=== PATIENT | male | born 1945 | race Caucasian/White ===

== ENCOUNTER 2017-08-18 13:35 | Inpatient (IN) | payer MEDICARE, OTHER ==
[2017-08-18 14:45] LABS: ADD MAN DIFF? NO
[2017-08-18 14:52] LABS: BASOPHILS % 0.2 % (0.0-2.0); EOSINOPHILS # 0.1 10^3/ul (0.0-0.5); EOSINOPHILS % 0.6 % (0.0-7.0); HEMATOCRIT 27.5 % (42.0-52.0); HEMOGLOBIN 8.4 g/dl (14.0-18.0); LYMPHOCYTES # 0.7 10^3/ul (0.8-2.9); LYMPHOCYTES % 3.1 % (15.0-51.0); MEAN CORPUSCULAR HEMOGLOBIN 28.8 pg (29.0-33.0); MEAN CORPUSCULAR HGB CONC 30.5 g/dl (32.0-37.0); MEAN CORPUSCULAR VOLUME 94.2 fl (82.0-101.0); MEAN PLATELET VOLUME 9.8 fl (7.4-10.4); MONOCYTE # 1.1 10^3/ul (0.3-0.9); MONOCYTES % 5.1 % (0.0-11.0); NEUTROPHIL # 18.9 10^3/ul (1.6-7.5); NEUTROPHILS % 87.7 % (39.0-77.0); NUCLEATED RED BLOOD CELLS% 0.1 /100WBC (0.0-0.0); PLATELET COUNT 330 10^3/UL (140-415); POSITIVE DIFF @See below; RED BLOOD COUNT 2.92 10^6/ul (4.70-6.10); RED CELL DISTRIBUTION WIDTH 16.9 % (11.5-14.5)
[2017-08-18 14:52] LABS: WHITE BLOOD COUNT 21.6 10^3/ul (4.8-10.8)
[2017-08-18] MEDS ORDERED: CEFEPIME 1GM/50 ML (PMX) 50 ML IVPB (15:00)
[2017-08-18] MEDS ORDERED: NA PHOSPHATE/BIPHOS 133 ML ENEMA PR (15:00)
[2017-08-18] MEDS ORDERED: BISACODYL 10 MG SUPP PR (15:00)
[2017-08-18] MEDS ORDERED: MAGNESIUM HYDROXIDE 30ML CUP PO (15:00)
[2017-08-18 15:08] LABS: ALANINE AMINOTRANSFERASE 23 IU/L (13-69); ALBUMIN 2.7 g/dl (3.3-4.9); ALKALINE PHOSPHATASE 121 IU/L (42-121); ANION GAP 21 (8-16); ASPARTATE AMINO TRANSFERASE 57 IU/L (15-46); BILIRUBIN,INDIRECT 0.1 mg/dl (0-1.1); BILIRUBIN,TOTAL 0.1 mg/dl (0.2-1.3); BLOOD UREA NITROGEN 74 mg/dl (7-20); CALCIUM 8.5 mg/dl (8.4-10.2); CARBON DIOXIDE 21 mmol/L (21-31); CHLORIDE 101 mmol/L (97-110); CREATININE 5.09 mg/dl (0.61-1.24); GLUCOSE 209 mg/dl (70-220); POTASSIUM 3.9 mmol/L (3.5-5.1); SODIUM 139 mmol/L (135-144); TOTAL PROTEIN 5.4 g/dl (6.1-8.1)
[2017-08-18] MEDS ORDERED: GLUCAGON 1 MG INJ IM (15:30)
[2017-08-18] MEDS ORDERED: GLUCOSE GEL 15 GRAM TUBE BUCCAL (15:30)
[2017-08-18] MEDS ORDERED: GLUCOSE GEL 15 GRAM TUBE PO ×2 (15:30)
[2017-08-18] MEDS ORDERED: PENDING SANTYL ORDER FOR WOUND CARE XX (15:30)
[2017-08-18] MEDS ORDERED: DEXTROSE 50% 50 ML SYRINGE IV ×2 (15:30)
[2017-08-18] MEDS: LACTATED RINGER'S 1,000 ML IV (15:51)
[2017-08-18] MEDS: oxyCODONE 5 MG TAB PO (16:06)
[2017-08-18] MEDS ORDERED: INSULIN ASPART [NOVOLOG] 3 ML PEN SC (17:35)
[2017-08-18] MEDS: INSULIN ASPART [NOVOLOG] 3 ML PEN SC ×2 (18:27→21:52)
[2017-08-18] MEDS ORDERED: VANCOMYCIN IV PER PHARMACY XX (20:00)
[2017-08-18] MEDS ORDERED: TOBRAMYCIN IV PER PHARMACY XX (21:00)
[2017-08-18] MEDS ORDERED: FAMOTIDINE 20 MG TAB PO (21:00)
[2017-08-18] MEDS: NORepinephrine 8MG/250 ML (PMX 250 ML IV (21:13)
[2017-08-18] MEDS: OLANZAPINE 5 MG TAB PO (21:35)
[2017-08-18] MEDS: PSYLLIUM 28% PACKET PO (21:35)
[2017-08-18] MEDS: DOCUSATE SODIUM 10 MG/ML (10ML CUP) GTB (21:36)
[2017-08-18] MEDS: PIPER-TAZO 2.25 GM (PMX) 50 ML IVPB (21:36)
[2017-08-18] MEDS: SEVELAMER CARBONATE 0.8 GM PKT GTB (21:36)
[2017-08-18] MEDS: ATORVASTATIN 10 MG TAB PO (21:37)
[2017-08-18] MEDS: APIXABAN 5 MG TABLET PO (21:37)
[2017-08-18] MEDS: FAMOTIDINE 20 MG TAB PO (21:37)
[2017-08-18 21:41] LABS: LACTIC ACID 1.1 mmol/L (0.5-2.0)
[2017-08-18] MEDS: VANCOMYCIN 2 GM in SOD CHLORIDE 0.9% 500 ML IVPB (21:57)
[2017-08-18] MEDS: BALSAM PERU/CASTOR OIL 60 GM TUBE TOP (23:53)
[2017-08-18] MEDS: SOD CHLORIDE 0.9% IVPB (23:54)
[2017-08-18] MEDS: TOBRAMYCIN IVPB (23:54)
[2017-08-19 00:06] LABS: ANION GAP 15 (8-16); BLOOD UREA NITROGEN 83 mg/dl (7-20); CALCIUM 8.5 mg/dl (8.4-10.2); CARBON DIOXIDE 24 mmol/L (21-31); CHLORIDE 101 mmol/L (97-110); CREATININE 5.27 mg/dl (0.61-1.24); GLUCOSE 183 mg/dl (70-220); MAGNESIUM 2.8 mg/dl (1.7-2.5); PHOSPHORUS 6.8 mg/dl (2.5-4.9); POTASSIUM 3.4 mmol/L (3.5-5.1); SODIUM 137 mmol/L (135-144)
[2017-08-19] MEDS: DOPamine-D5W 1.6 MG/ML 250 ML IV ×2 (00:30→22:06)
[2017-08-19] MEDS: LACTATED RINGER'S 1,000 ML IV ×3 (00:30→18:00)
[2017-08-19] MEDS: oxyCODONE 5 MG TAB PO ×4 (01:23→21:20)
[2017-08-19] MEDS: INSULIN ASPART [NOVOLOG] 3 ML PEN SC ×6 (01:31→21:00)
[2017-08-19] MEDS: LORAZEPAM 1 MG TAB PO ×3 (02:10→21:43)
[2017-08-19 05:06] LABS: Allen Test ACCEPTAB; Arterial Base Excess -1.5 mmol/L (-3.0-3); Arterial Blood Gas Oxygen Sat 98.2 mmHG (95.0-100.0); Arterial Fraction of Oxyhgb 97.1 % (93.0-99.0); Arterial HCO3 22.6 mmol/L (22.0-26.0); Arterial MetHb 0.1 % (0.0-1.5); Arterial Total Hemglobin 7.8 g/dl (12.0-18.0); Arterial pCO2 35.3 mmhg (35-45); MODE VENT - AC; Site Left Radial
[2017-08-19] MEDS: PIPER-TAZO 2.25 GM (PMX) 50 ML IVPB ×2 (05:22→13:29)
[2017-08-19 05:37] LABS: WHITE BLOOD COUNT 16.9 10^3/ul (4.8-10.8)
[2017-08-19 05:37] LABS: ABNORMAL IP MESSAGE 1; HEMATOCRIT 23.5 % (42.0-52.0); HEMOGLOBIN 7.2 g/dl (14.0-18.0); MEAN CORPUSCULAR HGB CONC 30.6 g/dl (32.0-37.0); MEAN CORPUSCULAR VOLUME 94.8 fl (82.0-101.0); MEAN PLATELET VOLUME 9.9 fl (7.4-10.4); NUCLEATED RED BLOOD CELLS% 0.2 /100WBC (0.0-0.0); PLATELET COUNT 277 10^3/UL (140-415); POSITIVE DIFF @See below; RED BLOOD COUNT 2.48 10^6/ul (4.70-6.10); RED CELL DISTRIBUTION WIDTH 16.8 % (11.5-14.5)
[2017-08-19 05:44] LABS: ADD MAN DIFF? YES
[2017-08-19 06:12] LABS: CREATINE KINASE 277 IU/L (23-200)
[2017-08-19 06:22] LABS: LACTIC ACID 2.9 mmol/L (0.5-2.0)
[2017-08-19 06:24] LABS: CK INDEX 3.1
[2017-08-19 06:35] LABS: CK-MB 8.45 ng/ml (0.0-2.4)
[2017-08-19 06:36] LABS: TROPONIN-I 0.127 ng/ml (0.000-0.120)
[2017-08-19 07:30] LABS: FREE T4 (FREE THYROXINE) 1.01 ng/dl (0.78-2.44)
[2017-08-19] MEDS: DOCUSATE SODIUM 10 MG/ML (10ML CUP) GTB ×2 (08:21→20:45)
[2017-08-19] MEDS: ASCORBIC ACID 500 MG TAB GTB (08:21)
[2017-08-19] MEDS: VITAMIN B COMPLEX/VIT C CAP PO (08:21)
[2017-08-19] MEDS: APIXABAN 5 MG TABLET PO (08:21)
[2017-08-19] MEDS: MULTIVIT/CA CARB/B CMPLX/FA TAB GTB (08:21)
[2017-08-19] MEDS: OLANZAPINE 5 MG TAB PO (08:21)
[2017-08-19] MEDS: FOLIC ACID 1 MG TAB GTB (08:21)
[2017-08-19] MEDS: CHOLECALCIFEROL 1,000 UNIT TAB GTB (08:22)
[2017-08-19] MEDS: SEVELAMER CARBONATE 0.8 GM PKT GTB ×3 (08:22→20:45)
[2017-08-19] MEDS: PSYLLIUM 28% PACKET PO ×2 (08:22→20:45)
[2017-08-19 08:24] LABS: ALANINE AMINOTRANSFERASE 32 IU/L (13-69); ALKALINE PHOSPHATASE 105 IU/L (42-121); ANION GAP 17 (8-16); ASPARTATE AMINO TRANSFERASE 52 IU/L (15-46); BLOOD UREA NITROGEN 80 mg/dl (7-20); CARBON DIOXIDE 21 mmol/L (21-31); CHLORIDE 102 mmol/L (97-110); CHOLESTEROL < 50 mg/dl (100-200); CREATININE 4.48 mg/dl (0.61-1.24); GLUCOSE 203 mg/dl (70-220); HDL CHOLESTEROL 11 mg/dl (31-75); MAGNESIUM 2.5 mg/dl (1.7-2.5); POTASSIUM 3.8 mmol/L (3.5-5.1); SODIUM 136 mmol/L (135-144); TRIGLYCERIDES 150 mg/dl (0-149)
[2017-08-19 08:25] LABS: B-TYPE NATRIURETIC PEPTIDE 114000 PG/ML (0-125)
[2017-08-19] MEDS: BALSAM PERU/CASTOR OIL 60 GM TUBE TOP (08:45)
[2017-08-19] MEDS: CYANOCOBALAMIN 500 MCG TAB GTB (08:45)
[2017-08-19] MEDS ORDERED: TOBRAMYCIN 100 MG in SOD CHLORIDE 0.9% 100 ML IVPB (09:00)
[2017-08-19] MEDS: SOD CHLORIDE 0.9% 250 ML IV* (09:06)
[2017-08-19 09:55] LABS: ANISOCYTOSIS 1+ (0-0); BAND NEUTROPHILS % (M) 12 % (0-4); BASOPHIL #M 0.1 10^3/ul (0.0-0.0); BASOPHILS % (M) 1 % (0-2); EOSINOPHILS % (M) 1 % (0-7); ERYTHROBLAST% (NRBC) (M) 1 % (0-0); GIANT THROMBO% (M) 5 % (0-0); LYMPHOCYTES #M 0.5 10^3/ul (0.8-2.9); LYMPHOCYTES % (M) 3 % (15-51); MICROCYTOSIS 1+ (0-0); MONOCYTE #M 0.3 10^3/ul (0.3-0.9); MONOCYTES % (M) 2 % (0-11); MYELOCYTES #M 0.1 10^3/ul (0.0-0.0); MYELOCYTES % (M) 1 % (0-0); PLATELET ESTIMATE NORMAL; POIKILOCYTOSIS 3+ (0-0); POLYCHROMASIA 2+ (0-0); SEG NEUT #M 13.9 10^3/ul (1.6-7.5); SEGMENTED NEUTROPHILS (M) % 80 % (39-77); SMUDGE%M 3 % (0-0)
[2017-08-19] MEDS: EPOETIN 10000 UNITS/1 ML INJ (ESRD) SC (11:00)
[2017-08-19] MEDS ORDERED: CEFEPIME 1GM/50 ML (PMX) 50 ML IVPB (12:00)
[2017-08-19 12:14] LABS: AADO2 Arterial 585.8 mmHg (7.0-24.0); Allen Test ACCEPTAB; Arterial Base Excess -7.9 mmol/L (-3.0-3); Arterial Blood Gas Oxygen Sat 92.9 mmHG (95.0-100.0); Arterial COHb 0.3 % (0.0-3.0); Arterial Fraction of Oxyhgb 92.5 % (93.0-99.0); Arterial HCO3 19.7 mmol/L (22.0-26.0); Arterial MetHb 0.1 % (0.0-1.5); Arterial Total Hemglobin 11.4 g/dl (12.0-18.0); Arterial pCO2 48.7 mmhg (35-45); MODE VENT - AC; Site Right Radial
[2017-08-19] MEDS ORDERED: PROPOFOL 100 ML (13:51)
[2017-08-19] MEDS: SOD CHLORIDE 0.9% 100 ML (13:55)
[2017-08-19] MEDS: IOHEXOL 100 ML (13:55)
[2017-08-19] MEDS: PROPOFOL 100 ML IV (15:05)
[2017-08-19] MEDS: CASPOFUNGIN 70 MG in SOD CHLORIDE 0.9% 250 ML IVPB (16:09)
[2017-08-19] MEDS: [UNRECOGNIZED DRUG - REMARK] XX (17:00)
[2017-08-19] MEDS: ATORVASTATIN 10 MG TAB PO (20:45)
[2017-08-19] MEDS: FAMOTIDINE 20 MG TAB PO (20:45)
[2017-08-19 21:09] LABS: IMMEDIATE SPIN CROSSMATCH 1 3
[2017-08-19] MEDS: NORepinephrine 8MG/250 ML (PMX 250 ML IV (21:45)
[2017-08-19] MEDS ORDERED: NORepinephrine 8MG/250 ML (PMX 250 ML (21:55)
[2017-08-20] MEDS: INSULIN ASPART [NOVOLOG] 3 ML PEN SC ×6 (01:16→21:10)
[2017-08-20] MEDS: OLANZAPINE 5 MG TAB PO ×3 (01:19→21:08)
[2017-08-20] MEDS: PIPER-TAZO 2.25 GM (PMX) 50 ML IVPB ×4 (01:19→21:30)
[2017-08-20] MEDS: APIXABAN 5 MG TABLET PO ×3 (01:19→21:08)
[2017-08-20] MEDS: PROPOFOL 100 ML IV ×3 (01:43→19:04)
[2017-08-20] MEDS: LACTATED RINGER'S 1,000 ML IV ×2 (03:58→16:35)
[2017-08-20] MEDS: DOPamine-D5W 1.6 MG/ML 250 ML IV ×3 (04:02→19:48)
[2017-08-20] MEDS: BALSAM PERU/CASTOR OIL 60 GM TUBE TOP ×3 (04:03→21:08)
[2017-08-20 05:08] LABS: ADD MAN DIFF? NO
[2017-08-20 05:11] LABS: BASOPHIL # 0.1 10^3/ul (0.0-0.1); BASOPHILS % 0.6 % (0.0-2.0); EOSINOPHILS # 0.6 10^3/ul (0.0-0.5); EOSINOPHILS % 4.4 % (0.0-7.0); HEMATOCRIT 26.6 % (42.0-52.0); HEMOGLOBIN 8.4 g/dl (14.0-18.0); LYMPHOCYTES # 0.6 10^3/ul (0.8-2.9); LYMPHOCYTES % 4.8 % (15.0-51.0); MEAN CORPUSCULAR HEMOGLOBIN 29.5 pg (29.0-33.0); MEAN CORPUSCULAR HGB CONC 31.6 g/dl (32.0-37.0); MEAN CORPUSCULAR VOLUME 93.3 fl (82.0-101.0); MEAN PLATELET VOLUME 9.9 fl (7.4-10.4); MONOCYTE # 0.8 10^3/ul (0.3-0.9); NEUTROPHIL # 10.4 10^3/ul (1.6-7.5); NEUTROPHILS % 79.4 % (39.0-77.0); NUCLEATED RED BLOOD CELLS% 0.3 /100WBC (0.0-0.0); PLATELET COUNT 257 10^3/UL (140-415); RED BLOOD COUNT 2.85 10^6/ul (4.70-6.10); RED CELL DISTRIBUTION WIDTH 16.4 % (11.5-14.5)
[2017-08-20 05:25] LABS: AADO2 Arterial 564.2 mmHg (7.0-24.0); Allen Test ACCEPTAB; Arterial Base Excess -2.2 mmol/L (-3.0-3); Arterial Blood Gas Oxygen Sat 97.4 mmHG (95.0-100.0); Arterial COHb 0 % (0.0-3.0); Arterial Fraction of Oxyhgb 97.2 % (93.0-99.0); Arterial HCO3 23.6 mmol/L (22.0-26.0); Arterial MetHb 0.2 % (0.0-1.5); Arterial Total Hemglobin 12.6 g/dl (12.0-18.0); Arterial pCO2 44.4 mmhg (35-45); MODE VENT - AC; Site Left Radial
[2017-08-20 05:30] LABS: LACTIC ACID 0.9 mmol/L (0.5-2.0)
[2017-08-20 05:32] LABS: ANION GAP 14 (8-16); BLOOD UREA NITROGEN 52 mg/dl (7-20); CALCIUM 7.8 mg/dl (8.4-10.2); CARBON DIOXIDE 27 mmol/L (21-31); CHLORIDE 95 mmol/L (97-110); CREATININE 3.04 mg/dl (0.61-1.24); GLUCOSE 279 mg/dl (70-220); MAGNESIUM 2.2 mg/dl (1.7-2.5); PHOSPHORUS 4.3 mg/dl (2.5-4.9); POTASSIUM 3.6 mmol/L (3.5-5.1); SODIUM 132 mmol/L (135-144)
[2017-08-20 05:36] LABS: VANCOMYCIN,RANDOM 12.9 ug/ml
[2017-08-20 06:15] LABS: IRON 28 ug/dl (35-150)
[2017-08-20 06:24] LABS: % IRON SATURATION 16 % SAT (22-52); TOTAL IRON BINDING CAPACITY 172 ug/dl (241-421)
[2017-08-20] MEDS: CHOLECALCIFEROL 1,000 UNIT TAB GTB (09:00)
[2017-08-20] MEDS: CYANOCOBALAMIN 500 MCG TAB GTB (09:00)
[2017-08-20] MEDS: MULTIVIT/CA CARB/B CMPLX/FA TAB GTB (09:00)
[2017-08-20] MEDS: VITAMIN B COMPLEX/VIT C CAP PO (09:00)
[2017-08-20] MEDS: DOCUSATE SODIUM 10 MG/ML (10ML CUP) GTB ×2 (09:00→21:07)
[2017-08-20] MEDS: FOLIC ACID 1 MG TAB GTB (09:00)
[2017-08-20] MEDS: SEVELAMER CARBONATE 0.8 GM PKT GTB ×3 (09:00→21:07)
[2017-08-20] MEDS: PSYLLIUM 28% PACKET PO ×2 (09:01→21:07)
[2017-08-20] MEDS: ASCORBIC ACID 500 MG TAB GTB (09:01)
[2017-08-20] MEDS: LIDOCAINE 1% (MPF) 5 ML VIAL SC (13:22)
[2017-08-20] MEDS: CASPOFUNGIN 50 MG in SOD CHLORIDE 0.9% 250 ML IVPB (16:18)
[2017-08-20] MEDS: VANCOMYCIN 1.5 GM in SOD CHLORIDE 0.9% 250 ML IVPB (16:19)
[2017-08-20] MEDS: LORAZEPAM 1 MG TAB PO (20:26)
[2017-08-20] MEDS ORDERED: METOCLOPRAMIDE 10 MG INJ IV (21:00)
[2017-08-20] MEDS: FAMOTIDINE 20 MG TAB PO (21:07)
[2017-08-20] MEDS: ATORVASTATIN 10 MG TAB PO (21:07)
[2017-08-20] MEDS ORDERED: METOCLOPRAMIDE 10 MG INJ (21:18)
[2017-08-20] MEDS: METOCLOPRAMIDE 10 MG INJ IV ×2 (21:21→21:27)
[2017-08-20] MEDS: ACETAMINOPHEN 650MG/20.3ML CUP GTB (23:42)
[2017-08-21] MEDS ORDERED: METOCLOPRAMIDE 10 MG INJ IV
[2017-08-21] MEDS: PROPOFOL 100 ML IV ×4 (00:05→18:10)
[2017-08-21] MEDS: INSULIN ASPART [NOVOLOG] 3 ML PEN SC ×6 (01:13→21:33)
[2017-08-21 05:10] LABS: ADD MAN DIFF? NO
[2017-08-21 05:19] LABS: WHITE BLOOD COUNT 16.6 10^3/ul (4.8-10.8)
[2017-08-21 05:19] LABS: BASOPHIL # 0.1 10^3/ul (0.0-0.1); BASOPHILS % 0.4 % (0.0-2.0); EOSINOPHILS # 0.5 10^3/ul (0.0-0.5); EOSINOPHILS % 3.1 % (0.0-7.0); HEMATOCRIT 23.7 % (42.0-52.0); HEMOGLOBIN 7.4 g/dl (14.0-18.0); LYMPHOCYTES # 0.7 10^3/ul (0.8-2.9); LYMPHOCYTES % 4.4 % (15.0-51.0); MEAN CORPUSCULAR HGB CONC 31.2 g/dl (32.0-37.0); MEAN CORPUSCULAR VOLUME 92.9 fl (82.0-101.0); MEAN PLATELET VOLUME 9.9 fl (7.4-10.4); NEUTROPHIL # 13.5 10^3/ul (1.6-7.5); NEUTROPHILS % 81.3 % (39.0-77.0); NUCLEATED RED BLOOD CELLS% 0.2 /100WBC (0.0-0.0); PLATELET COUNT 267 10^3/UL (140-415); POSITIVE DIFF @See below; RED BLOOD COUNT 2.55 10^6/ul (4.70-6.10); RED CELL DISTRIBUTION WIDTH 16.7 % (11.5-14.5)
[2017-08-21] MEDS: METOCLOPRAMIDE 10 MG INJ IV ×3 (05:21→17:01)
[2017-08-21] MEDS: PIPER-TAZO 2.25 GM (PMX) 50 ML IVPB ×3 (05:31→21:39)
[2017-08-21 05:59] LABS: ANION GAP 16 (8-16); BLOOD UREA NITROGEN 66 mg/dl (7-20); CALCIUM 7.9 mg/dl (8.4-10.2); CARBON DIOXIDE 25 mmol/L (21-31); CHLORIDE 96 mmol/L (97-110); GLUCOSE 163 mg/dl (70-220); MAGNESIUM 2.3 mg/dl (1.7-2.5); PHOSPHORUS 5.2 mg/dl (2.5-4.9); POTASSIUM 3.6 mmol/L (3.5-5.1); SODIUM 133 mmol/L (135-144)
[2017-08-21] MEDS: DOPamine-D5W 1.6 MG/ML 250 ML IV (06:46)
[2017-08-21 07:03] LABS: HEMOGLOBIN 7.7 g/dl (14.0-18.0)
[2017-08-21 07:28] LABS: AADO2 Arterial 402.9 mmHg (7.0-24.0); Arterial Base Excess -2.1 mmol/L (-3.0-3); Arterial Blood Gas Oxygen Sat 97.8 mmHG (95.0-100.0); Arterial COHb 0.1 % (0.0-3.0); Arterial Fraction of Oxyhgb 97.2 % (93.0-99.0); Arterial HCO3 23.8 mmol/L (22.0-26.0); Arterial MetHb 0.5 % (0.0-1.5); Arterial Total Hemglobin 8.3 g/dl (12.0-18.0); Arterial pCO2 46.1 mmhg (35-45); MODE VENT - AC; Site Right Brachial
[2017-08-21 08:31] LABS: IRON 28 ug/dl (35-150)
[2017-08-21 08:40] LABS: % IRON SATURATION 18 % SAT (22-52); TOTAL IRON BINDING CAPACITY 158 ug/dl (241-421)
[2017-08-21] MEDS: SEVELAMER CARBONATE 0.8 GM PKT GTB ×3 (09:00→21:26)
[2017-08-21] MEDS: VITAMIN B COMPLEX/VIT C CAP PO (09:00)
[2017-08-21] MEDS: ASCORBIC ACID 500 MG TAB GTB (09:00)
[2017-08-21] MEDS: MULTIVIT/CA CARB/B CMPLX/FA TAB GTB (09:00)
[2017-08-21] MEDS: FOLIC ACID 1 MG TAB GTB (09:00)
[2017-08-21] MEDS: CYANOCOBALAMIN 500 MCG TAB GTB (09:00)
[2017-08-21] MEDS: CHOLECALCIFEROL 1,000 UNIT TAB GTB (09:00)
[2017-08-21] MEDS: HEPARIN 1000 UNITS/ML 10 ML INJ CATHETER (12:40)
[2017-08-21] MEDS: PSYLLIUM 28% PACKET PO ×2 (12:41→21:26)
[2017-08-21] MEDS: BALSAM PERU/CASTOR OIL 60 GM TUBE TOP ×2 (12:41→21:37)
[2017-08-21] MEDS: APIXABAN 5 MG TABLET PO ×2 (12:41→21:26)
[2017-08-21] MEDS: DOCUSATE SODIUM 10 MG/ML (10ML CUP) GTB ×2 (12:42→21:26)
[2017-08-21] MEDS: LORAZEPAM 1 MG TAB PO ×2 (13:00→22:28)
[2017-08-21] MEDS: OLANZAPINE 5 MG TAB PO ×2 (13:09→21:26)
[2017-08-21] MEDS: CASPOFUNGIN 50 MG in SOD CHLORIDE 0.9% 250 ML IVPB (16:59)
[2017-08-21] MEDS: MAGNESIUM HYDROXIDE 30ML CUP PO (17:36)
[2017-08-21] MEDS: EPOETIN 10000 UNITS/1 ML INJ (ESRD) SC (17:37)
[2017-08-21 21:01] LABS: ANION GAP 17 (8-16); BLOOD UREA NITROGEN 40 mg/dl (7-20); CALCIUM 7.9 mg/dl (8.4-10.2); CARBON DIOXIDE 27 mmol/L (21-31); CHLORIDE 94 mmol/L (97-110); CREATININE 3.36 mg/dl (0.61-1.24); GLUCOSE 164 mg/dl (70-220); MAGNESIUM 2.1 mg/dl (1.7-2.5); PHOSPHORUS 5.2 mg/dl (2.5-4.9); POTASSIUM 3.6 mmol/L (3.5-5.1); SODIUM 134 mmol/L (135-144)
[2017-08-21] MEDS: FAMOTIDINE 20 MG TAB PO (21:26)
[2017-08-21] MEDS: ATORVASTATIN 10 MG TAB PO (21:26)
[2017-08-21] MEDS: DEXTROSE 5%-0.45% NACL 1,000 ML IV (22:34)
[2017-08-21] MEDS: NA PHOSPHATE/BIPHOS 133 ML ENEMA PR (22:34)
[2017-08-22] MEDS: PROPOFOL 100 ML IV ×5 (00:12→20:21)
[2017-08-22] MEDS: METOCLOPRAMIDE 10 MG INJ IV ×4 (00:12→17:27)
[2017-08-22] MEDS: INSULIN ASPART [NOVOLOG] 3 ML PEN SC ×6 (00:28→22:06)
[2017-08-22] MEDS: COLLAGENASE 5 GM (UD JAR) TOP ×2 (03:00→09:23)
[2017-08-22 05:28] LABS: ADD MAN DIFF? NO
[2017-08-22] MEDS: PIPER-TAZO 2.25 GM (PMX) 50 ML IVPB ×3 (05:30→22:15)
[2017-08-22 05:43] LABS: WHITE BLOOD COUNT 21.4 10^3/ul (4.8-10.8)
[2017-08-22 05:43] LABS: OCCULT BLOOD STOOL NEGATIVE (NEGATIVE)
[2017-08-22 05:43] LABS: BASOPHIL # 0.1 10^3/ul (0.0-0.1); BASOPHILS % 0.4 % (0.0-2.0); EOSINOPHILS # 0.4 10^3/ul (0.0-0.5); EOSINOPHILS % 1.6 % (0.0-7.0); HEMATOCRIT 23.9 % (42.0-52.0); HEMOGLOBIN 7.5 g/dl (14.0-18.0); LYMPHOCYTES # 0.7 10^3/ul (0.8-2.9); LYMPHOCYTES % 3.1 % (15.0-51.0); MEAN CORPUSCULAR HEMOGLOBIN 29.1 pg (29.0-33.0); MEAN CORPUSCULAR HGB CONC 31.4 g/dl (32.0-37.0); MEAN CORPUSCULAR VOLUME 92.6 fl (82.0-101.0); MEAN PLATELET VOLUME 10.2 fl (7.4-10.4); MONOCYTES % 4.6 % (0.0-11.0); NEUTROPHIL # 18.3 10^3/ul (1.6-7.5); NEUTROPHILS % 85.8 % (39.0-77.0); PLATELET COUNT 307 10^3/UL (140-415); RED BLOOD COUNT 2.58 10^6/ul (4.70-6.10); RED CELL DISTRIBUTION WIDTH 16.7 % (11.5-14.5)
[2017-08-22 06:00] LABS: ANION GAP 16 (8-16); BLOOD UREA NITROGEN 47 mg/dl (7-20); CALCIUM 7.8 mg/dl (8.4-10.2); CARBON DIOXIDE 27 mmol/L (21-31); CHLORIDE 94 mmol/L (97-110); CREATININE 3.53 mg/dl (0.61-1.24); GLUCOSE 165 mg/dl (70-220); MAGNESIUM 2.2 mg/dl (1.7-2.5); PHOSPHORUS 5.6 mg/dl (2.5-4.9); POTASSIUM 3.9 mmol/L (3.5-5.1); SODIUM 133 mmol/L (135-144)
[2017-08-22] MEDS ORDERED: COLLAGENASE 5 GM (UD JAR) TOP (09:00)
[2017-08-22] MEDS: DOCUSATE SODIUM 10 MG/ML (10ML CUP) GTB ×2 (09:22→22:11)
[2017-08-22] MEDS: MULTIVIT/CA CARB/B CMPLX/FA TAB GTB (09:23)
[2017-08-22] MEDS: PSYLLIUM 28% PACKET PO ×2 (09:23→22:14)
[2017-08-22] MEDS: CHOLECALCIFEROL 1,000 UNIT TAB GTB (09:23)
[2017-08-22] MEDS: CYANOCOBALAMIN 500 MCG TAB GTB (09:23)
[2017-08-22] MEDS: SEVELAMER CARBONATE 0.8 GM PKT GTB ×3 (09:23→22:13)
[2017-08-22] MEDS: OLANZAPINE 5 MG TAB PO ×2 (09:23→22:12)
[2017-08-22] MEDS: FOLIC ACID 1 MG TAB GTB (09:24)
[2017-08-22] MEDS: APIXABAN 5 MG TABLET PO ×2 (09:24→22:11)
[2017-08-22] MEDS: BALSAM PERU/CASTOR OIL 60 GM TUBE TOP ×2 (09:26→22:18)
[2017-08-22] MEDS: ASCORBIC ACID 500 MG TAB GTB (09:27)
[2017-08-22] MEDS: VITAMIN B COMPLEX/VIT C CAP PO (09:27)
[2017-08-22] MEDS ORDERED: DOPamine-D5W 1.6 MG/ML 250 ML IV (12:00)
[2017-08-22] MEDS: DEXTROSE 5%-0.45% NACL 1,000 ML IV (14:14)
[2017-08-22] MEDS ORDERED: ACCU-CHEK XX (16:00)
[2017-08-22] MEDS ORDERED: INSULIN HUMAN REGULAR 100 UNIT in SOD CHLORIDE 0.9% 99 ML IV (16:00)
[2017-08-22] MEDS ORDERED: DEXTROSE 50% 50 ML SYRINGE IV ×2 (16:00)
[2017-08-22] MEDS: CASPOFUNGIN 50 MG in SOD CHLORIDE 0.9% 250 ML IVPB (17:01)
[2017-08-22 18:26] LABS: LIPASE 93 U/L (23-300)
[2017-08-22 18:26] LABS: AMYLASE 79 U/L (11-123)
[2017-08-22] MEDS: INSULIN GLARGINE [LANtus] 3 ML PEN SC (22:06)
[2017-08-22] MEDS: FAMOTIDINE 20 MG TAB PO (22:10)
[2017-08-22] MEDS: ATORVASTATIN 10 MG TAB PO (22:10)
[2017-08-23] MEDS: METOCLOPRAMIDE 10 MG INJ IV ×4 (00:54→17:04)
[2017-08-23] MEDS: INSULIN ASPART [NOVOLOG] 3 ML PEN SC ×6 (01:13→21:00)
[2017-08-23] MEDS: PROPOFOL 100 ML IV ×3 (01:23→11:07)
[2017-08-23] MEDS: ACETAMINOPHEN 650MG/20.3ML CUP GTB (02:12)
[2017-08-23] MEDS: PIPER-TAZO 2.25 GM (PMX) 50 ML IVPB ×3 (05:11→22:00)
[2017-08-23 05:47] LABS: ADD MAN DIFF? NO
[2017-08-23 05:51] LABS: ABNORMAL IP MESSAGE 1; BASOPHIL # 0.1 10^3/ul (0.0-0.1); BASOPHILS % 0.3 % (0.0-2.0); EOSINOPHILS # 0.3 10^3/ul (0.0-0.5); EOSINOPHILS % 1.6 % (0.0-7.0); HEMATOCRIT 22.1 % (42.0-52.0); LYMPHOCYTES # 0.6 10^3/ul (0.8-2.9); LYMPHOCYTES % 2.7 % (15.0-51.0); MEAN CORPUSCULAR HEMOGLOBIN 28.9 pg (29.0-33.0); MEAN CORPUSCULAR HGB CONC 31.7 g/dl (32.0-37.0); MEAN CORPUSCULAR VOLUME 91.3 fl (82.0-101.0); MEAN PLATELET VOLUME 10.2 fl (7.4-10.4); MONOCYTES % 4.9 % (0.0-11.0); NUCLEATED RED BLOOD CELLS% 0.1 /100WBC (0.0-0.0); PLATELET COUNT 324 10^3/UL (140-415); POSITIVE DIFF @See below; RED BLOOD COUNT 2.42 10^6/ul (4.70-6.10); RED CELL DISTRIBUTION WIDTH 16.5 % (11.5-14.5)
[2017-08-23 06:34] LABS: ANION GAP 18 (8-16); BLOOD UREA NITROGEN 48 mg/dl (7-20); CALCIUM 7.8 mg/dl (8.4-10.2); CARBON DIOXIDE 28 mmol/L (21-31); CHLORIDE 90 mmol/L (97-110); CREATININE 4.78 mg/dl (0.61-1.24); GLUCOSE 147 mg/dl (70-220); POTASSIUM 3.6 mmol/L (3.5-5.1); SODIUM 132 mmol/L (135-144)
[2017-08-23 06:38] LABS: VANCOMYCIN,RANDOM 17.6 ug/ml
[2017-08-23] MEDS: DEXTROSE 5%-0.45% NACL 1,000 ML IV (07:38)
[2017-08-23] MEDS: PSYLLIUM 28% PACKET PO ×2 (08:01→21:00)
[2017-08-23] MEDS: SEVELAMER CARBONATE 0.8 GM PKT GTB ×3 (08:02→21:00)
[2017-08-23] MEDS: MULTIVIT/CA CARB/B CMPLX/FA TAB GTB (08:02)
[2017-08-23] MEDS: OLANZAPINE 5 MG TAB PO ×2 (08:02→21:00)
[2017-08-23] MEDS: VITAMIN B COMPLEX/VIT C CAP PO (08:02)
[2017-08-23] MEDS: CHOLECALCIFEROL 1,000 UNIT TAB GTB (08:03)
[2017-08-23] MEDS: CYANOCOBALAMIN 500 MCG TAB GTB (08:03)
[2017-08-23] MEDS: ASCORBIC ACID 500 MG TAB GTB (08:03)
[2017-08-23] MEDS: APIXABAN 5 MG TABLET PO ×2 (08:03→21:00)
[2017-08-23] MEDS: FOLIC ACID 1 MG TAB GTB (08:03)
[2017-08-23] MEDS: DOCUSATE SODIUM 10 MG/ML (10ML CUP) GTB ×2 (08:03→21:00)
[2017-08-23] MEDS: BALSAM PERU/CASTOR OIL 60 GM TUBE TOP ×2 (08:04→21:00)
[2017-08-23] MEDS: COLLAGENASE 5 GM (UD JAR) TOP (08:04)
[2017-08-23] MEDS ORDERED: ALBUMIN HUMAN 25% 100 ML IV (09:00)
[2017-08-23] MEDS: oxyCODONE 5 MG TAB PO ×2 (09:49→15:59)
[2017-08-23] MEDS: LORAZEPAM 1 MG TAB PO ×2 (09:49→15:58)
[2017-08-23 09:57] LABS: IMMEDIATE SPIN CROSSMATCH 1 1
[2017-08-23] MEDS: HEPARIN 1000 UNITS/ML 10 ML INJ CATHETER (11:30)
[2017-08-23 12:55] LABS: AADO2 Arterial 166.4 mmHg (7.0-24.0); Allen Test ACCEPTAB; Arterial Base Excess 2.3 mmol/L (-3.0-3); Arterial Blood Gas Oxygen Sat 91.3 mmHG (95.0-100.0); Arterial COHb 0.1 % (0.0-3.0); Arterial Fraction of Oxyhgb 91.1 % (93.0-99.0); Arterial HCO3 27.7 mmol/L (22.0-26.0); Arterial MetHb 0.1 % (0.0-1.5); Arterial Total Hemglobin 9.5 g/dl (12.0-18.0); MODE VENT - AC; Site Right Radial
[2017-08-23] MEDS: CASPOFUNGIN 50 MG in SOD CHLORIDE 0.9% 250 ML IVPB (15:59)
[2017-08-23] MEDS: EPOETIN 10000 UNITS/1 ML INJ (ESRD) SC (16:00)
[2017-08-23] MEDS: SOD FERRIC GLUC COMPLX 125 MG in SOD CHLORIDE 0.9% 100 ML IVPB (17:04)
[2017-08-23] MEDS: VANCOMYCIN 1 GM 250 ML IVPB (18:18)
[2017-08-23] MEDS: INSULIN GLARGINE [LANtus] 3 ML PEN SC (20:36)
[2017-08-23] MEDS: ATORVASTATIN 10 MG TAB PO (21:00)
[2017-08-23] MEDS: FAMOTIDINE 20 MG TAB PO (21:00)
[2017-08-24] MEDS: METOCLOPRAMIDE 10 MG INJ IV ×4 (00:14→17:23)
[2017-08-24] MEDS: INSULIN ASPART [NOVOLOG] 3 ML PEN SC ×6 (01:00→21:50)
[2017-08-24] MEDS: FENTAnyl (DRIP) 1000 mcg/100mL 100 ML IV ×2 (01:28→08:47)
[2017-08-24] MEDS: PROPOFOL 100 ML IV (04:01)
[2017-08-24] MEDS: DEXTROSE 5%-0.45% NACL 1,000 ML IV ×3 (04:01→23:11)
[2017-08-24] MEDS: PIPER-TAZO 2.25 GM (PMX) 50 ML IVPB ×2 (05:38→14:19)
[2017-08-24 06:13] LABS: ADD MAN DIFF? NO
[2017-08-24 06:16] LABS: ABNORMAL IP MESSAGE 1; BASOPHIL # 0.1 10^3/ul (0.0-0.1); BASOPHILS % 0.5 % (0.0-2.0); EOSINOPHILS # 0.2 10^3/ul (0.0-0.5); EOSINOPHILS % 0.9 % (0.0-7.0); HEMATOCRIT 26.4 % (42.0-52.0); HEMOGLOBIN 8.5 g/dl (14.0-18.0); LYMPHOCYTES # 0.6 10^3/ul (0.8-2.9); LYMPHOCYTES % 2.6 % (15.0-51.0); MEAN CORPUSCULAR HEMOGLOBIN 29.6 pg (29.0-33.0); MEAN CORPUSCULAR HGB CONC 32.2 g/dl (32.0-37.0); MEAN PLATELET VOLUME 9.5 fl (7.4-10.4); MONOCYTE # 1.1 10^3/ul (0.3-0.9); MONOCYTES % 5.1 % (0.0-11.0); NEUTROPHIL # 19.3 10^3/ul (1.6-7.5); NEUTROPHILS % 86.8 % (39.0-77.0); NUCLEATED RED BLOOD CELLS% 0.1 /100WBC (0.0-0.0); PLATELET COUNT 336 10^3/UL (140-415); POSITIVE DIFF @See below; RED BLOOD COUNT 2.87 10^6/ul (4.70-6.10); RED CELL DISTRIBUTION WIDTH 16.7 % (11.5-14.5)
[2017-08-24 06:16] LABS: WHITE BLOOD COUNT 22.2 10^3/ul (4.8-10.8)
[2017-08-24 06:45] LABS: ANION GAP 15 (8-16); BLOOD UREA NITROGEN 34 mg/dl (7-20); CALCIUM 7.8 mg/dl (8.4-10.2); CARBON DIOXIDE 31 mmol/L (21-31); CHLORIDE 94 mmol/L (97-110); CREATININE 4.13 mg/dl (0.61-1.24); GLUCOSE 120 mg/dl (70-220); MAGNESIUM 2.2 mg/dl (1.7-2.5); PHOSPHORUS 5.9 mg/dl (2.5-4.9); POTASSIUM 3.8 mmol/L (3.5-5.1); SODIUM 136 mmol/L (135-144)
[2017-08-24] MEDS: SEVELAMER CARBONATE 0.8 GM PKT GTB ×3 (08:04→21:00)
[2017-08-24] MEDS: DOCUSATE SODIUM 10 MG/ML (10ML CUP) GTB ×2 (08:04→21:00)
[2017-08-24] MEDS: PSYLLIUM 28% PACKET PO ×2 (08:04→21:00)
[2017-08-24] MEDS: MAGNESIUM HYDROXIDE 30ML CUP PO (08:04)
[2017-08-24] MEDS: OLANZAPINE 5 MG TAB PO ×2 (08:05→21:00)
[2017-08-24] MEDS: MULTIVIT/CA CARB/B CMPLX/FA TAB GTB (08:05)
[2017-08-24] MEDS: CHOLECALCIFEROL 1,000 UNIT TAB GTB (08:05)
[2017-08-24] MEDS: APIXABAN 5 MG TABLET PO ×2 (08:05→21:00)
[2017-08-24] MEDS: FOLIC ACID 1 MG TAB GTB (08:05)
[2017-08-24] MEDS: CYANOCOBALAMIN 500 MCG TAB GTB (08:05)
[2017-08-24] MEDS: BALSAM PERU/CASTOR OIL 60 GM TUBE TOP ×2 (08:06→21:00)
[2017-08-24] MEDS: ASCORBIC ACID 500 MG TAB GTB (08:06)
[2017-08-24] MEDS: COLLAGENASE 5 GM (UD JAR) TOP (08:06)
[2017-08-24] MEDS: VITAMIN B COMPLEX/VIT C CAP PO (08:07)
[2017-08-24] MEDS: LORAZEPAM 2 MG INJ IV ×3 (10:07→21:42)
[2017-08-24] MEDS: FENTAnyl 50 MCG/ML VIAL IV ×3 (10:07→22:57)
[2017-08-24 16:14] LABS: LACTIC ACID 0.9 mmol/L (0.5-2.0)
[2017-08-24 16:29] LABS: ADD UMIC YES; UR AMORPHOUS CRYSTAL FEW /HPF (NONE SEEN); UR ASCORBIC ACID NEGATIVE (NEGATIVE); UR BILIRUBIN (Dip) NEGATIVE (NEGATIVE); UR BLOOD (Dip) NEGATIVE (NEGATIVE); UR CLARITY CLOUDY (CLEAR); UR COLOR AMBER (YELLOW); UR GLUCOSE (Dip) NEGATIVE (NEGATIVE); UR KETONES (Dip) TRACE mg/dL (NEGATIVE); UR LEUKOCYTE ESTERASE (Dip) 1+ Leu/ul (NEGATIVE); UR NITRITE (Dip) NEGATIVE (NEGATIVE); UR RBC 10 /HPF (0-5); UR SPECIFIC GRAVITY (Dip) 1.025 (1.003-1.030); UR SQUAMOUS EPITHELIAL CELL FEW /HPF (FEW); UR TOTAL PROTEIN (Dip) 2+ mg/dl (NEGATIVE); UR UROBILINOGEN (Dip) NEGATIVE (NEGATIVE); UR WBC 28 /HPF (0-5)
[2017-08-24] MEDS: SOD FERRIC GLUC COMPLX 125 MG in SOD CHLORIDE 0.9% 100 ML IVPB (17:22)
[2017-08-24] MEDS: CASPOFUNGIN 50 MG in SOD CHLORIDE 0.9% 250 ML IVPB (17:22)
[2017-08-24] MEDS: MEROPENEM 1 GM/50ML(PMX) 50 ML IVPB (17:23)
[2017-08-24] MEDS: ATORVASTATIN 10 MG TAB PO (21:00)
[2017-08-24] MEDS: FAMOTIDINE 20 MG TAB PO (21:00)
[2017-08-24] MEDS: INSULIN GLARGINE [LANtus] 3 ML PEN SC (21:48)
[2017-08-24] MEDS ORDERED: MEROPENEM 1 GM/50ML(PMX) 50 ML IVPB (22:00)
[2017-08-25] MEDS: METOCLOPRAMIDE 10 MG INJ IV ×4 (00:12→17:54)
[2017-08-25] MEDS: INSULIN ASPART [NOVOLOG] 3 ML PEN SC ×6 (01:17→21:00)
[2017-08-25] MEDS: LORAZEPAM 2 MG INJ IV ×4 (04:09→23:25)
[2017-08-25] MEDS: FENTAnyl 50 MCG/ML VIAL IV ×4 (04:21→18:55)
[2017-08-25 05:25] LABS: ADD MAN DIFF? NO
[2017-08-25 05:29] LABS: ABNORMAL IP MESSAGE 1; BASOPHIL # 0.1 10^3/ul (0.0-0.1); BASOPHILS % 0.5 % (0.0-2.0); EOSINOPHILS # 0.2 10^3/ul (0.0-0.5); EOSINOPHILS % 0.9 % (0.0-7.0); HEMATOCRIT 28.4 % (42.0-52.0); HEMOGLOBIN 8.9 g/dl (14.0-18.0); LYMPHOCYTES # 0.6 10^3/ul (0.8-2.9); LYMPHOCYTES % 2.3 % (15.0-51.0); MEAN CORPUSCULAR HGB CONC 31.3 g/dl (32.0-37.0); MEAN CORPUSCULAR VOLUME 92.5 fl (82.0-101.0); MEAN PLATELET VOLUME 9.3 fl (7.4-10.4); MONOCYTE # 1.3 10^3/ul (0.3-0.9); NEUTROPHIL # 23.1 10^3/ul (1.6-7.5); NUCLEATED RED BLOOD CELLS% 0.1 /100WBC (0.0-0.0); PLATELET COUNT 392 10^3/UL (140-415); POSITIVE DIFF @See below; RED BLOOD COUNT 3.07 10^6/ul (4.70-6.10); RED CELL DISTRIBUTION WIDTH 16.5 % (11.5-14.5)
[2017-08-25 05:29] LABS: WHITE BLOOD COUNT 26.2 10^3/ul (4.8-10.8)
[2017-08-25 06:03] LABS: ANION GAP 18 (8-16); BLOOD UREA NITROGEN 41 mg/dl (7-20); CARBON DIOXIDE 30 mmol/L (21-31); CHLORIDE 92 mmol/L (97-110); GLUCOSE 118 mg/dl (70-220); MAGNESIUM 2.4 mg/dl (1.7-2.5); PHOSPHORUS 7.2 mg/dl (2.5-4.9); POTASSIUM 4.1 mmol/L (3.5-5.1); SODIUM 136 mmol/L (135-144)
[2017-08-25] MEDS: OLANZAPINE 5 MG TAB PO ×2 (09:00→20:12)
[2017-08-25] MEDS: DOCUSATE SODIUM 10 MG/ML (10ML CUP) GTB ×2 (09:00→20:11)
[2017-08-25] MEDS: COLLAGENASE 5 GM (UD JAR) TOP (09:00)
[2017-08-25] MEDS: FOLIC ACID 1 MG TAB GTB (10:06)
[2017-08-25] MEDS: MULTIVIT/CA CARB/B CMPLX/FA TAB GTB (10:06)
[2017-08-25] MEDS: MEROPENEM 1 GM/50ML(PMX) 50 ML IVPB (10:06)
[2017-08-25] MEDS: ASCORBIC ACID 500 MG TAB GTB (10:08)
[2017-08-25] MEDS: CYANOCOBALAMIN 500 MCG TAB GTB (10:08)
[2017-08-25] MEDS: CHOLECALCIFEROL 1,000 UNIT TAB GTB (10:09)
[2017-08-25] MEDS: APIXABAN 5 MG TABLET PO ×2 (10:10→21:29)
[2017-08-25] MEDS: SEVELAMER CARBONATE 0.8 GM PKT GTB ×3 (10:10→20:11)
[2017-08-25] MEDS: PSYLLIUM 28% PACKET PO ×2 (10:12→20:12)
[2017-08-25] MEDS: VITAMIN B COMPLEX/VIT C CAP PO (10:16)
[2017-08-25] MEDS: BALSAM PERU/CASTOR OIL 60 GM TUBE TOP ×2 (10:24→21:36)
[2017-08-25 11:27] LABS: PROCALCITONIN 5.38 ng/mL (<0.10)
[2017-08-25] MEDS ORDERED: FENTAnyl 50 MCG/ML VIAL IV (13:00)
[2017-08-25] MEDS: HEPARIN 1000 UNITS/ML 10 ML INJ CATHETER (14:59)
[2017-08-25] MEDS: CASPOFUNGIN 50 MG in SOD CHLORIDE 0.9% 250 ML IVPB (17:40)
[2017-08-25] MEDS: SOD FERRIC GLUC COMPLX 125 MG in SOD CHLORIDE 0.9% 100 ML IVPB (17:40)
[2017-08-25] MEDS: EPOETIN 10000 UNITS/1 ML INJ (ESRD) SC (17:54)
[2017-08-25] MEDS: FAMOTIDINE 20 MG TAB PO (20:12)
[2017-08-25] MEDS: ATORVASTATIN 10 MG TAB PO (20:12)
[2017-08-25] MEDS: INSULIN GLARGINE [LANtus] 3 ML PEN SC (21:32)
[2017-08-25 22:27] LABS: LACTIC ACID 1.3 mmol/L (0.5-2.0)
[2017-08-25 22:41] LABS: LIPASE 47 U/L (23-300)
[2017-08-26] MEDS: METOCLOPRAMIDE 10 MG INJ IV ×4 (00:59→17:00)
[2017-08-26] MEDS: INSULIN ASPART [NOVOLOG] 3 ML PEN SC ×6 (01:00→21:50)
[2017-08-26] MEDS: DEXTROSE 5%-0.45% NACL 1,000 ML IV ×2 (01:06→19:10)
[2017-08-26 05:11] LABS: AADO2 Arterial 132.4 mmHg (7.0-24.0); Allen Test ACCEPTAB; Arterial Blood Gas Oxygen Sat 95.7 mmHG (95.0-100.0); Arterial COHb 0.3 % (0.0-3.0); Arterial Fraction of Oxyhgb 95.2 % (93.0-99.0); Arterial HCO3 28.5 mmol/L (22.0-26.0); Arterial MetHb 0.2 % (0.0-1.5); Arterial Total Hemglobin 10.4 g/dl (12.0-18.0); MODE VENT - AC; Site Right Radial
[2017-08-26 05:33] LABS: ADD MAN DIFF? NO
[2017-08-26] MEDS: FENTAnyl 50 MCG/ML VIAL IV ×4 (05:51→20:45)
[2017-08-26 05:54] LABS: ABNORMAL IP MESSAGE 1; BASOPHIL # 0.1 10^3/ul (0.0-0.1); BASOPHILS % 0.5 % (0.0-2.0); EOSINOPHILS # 0.1 10^3/ul (0.0-0.5); EOSINOPHILS % 0.5 % (0.0-7.0); HEMATOCRIT 29.6 % (42.0-52.0); HEMOGLOBIN 9.4 g/dl (14.0-18.0); LYMPHOCYTES # 0.5 10^3/ul (0.8-2.9); LYMPHOCYTES % 2.1 % (15.0-51.0); MEAN CORPUSCULAR HEMOGLOBIN 29.8 pg (29.0-33.0); MEAN CORPUSCULAR HGB CONC 31.8 g/dl (32.0-37.0); MEAN PLATELET VOLUME 9.1 fl (7.4-10.4); MONOCYTE # 1.2 10^3/ul (0.3-0.9); MONOCYTES % 4.7 % (0.0-11.0); NEUTROPHILS % 88.6 % (39.0-77.0); PLATELET COUNT 425 10^3/UL (140-415); POSITIVE DIFF @See below; RED BLOOD COUNT 3.15 10^6/ul (4.70-6.10); RED CELL DISTRIBUTION WIDTH 16.5 % (11.5-14.5)
[2017-08-26 05:55] LABS: ANION GAP 16 (8-16); BLOOD UREA NITROGEN 32 mg/dl (7-20); CARBON DIOXIDE 29 mmol/L (21-31); CHLORIDE 96 mmol/L (97-110); CREATININE 3.72 mg/dl (0.61-1.24); GLUCOSE 130 mg/dl (70-220); MAGNESIUM 2.3 mg/dl (1.7-2.5); PHOSPHORUS 6.7 mg/dl (2.5-4.9); POTASSIUM 4.3 mmol/L (3.5-5.1); SODIUM 137 mmol/L (135-144)
[2017-08-26] MEDS: LORAZEPAM 2 MG INJ IV ×3 (07:21→22:20)
[2017-08-26] MEDS: COLLAGENASE 5 GM (UD JAR) TOP (09:00)
[2017-08-26] MEDS: SEVELAMER CARBONATE 0.8 GM PKT GTB ×3 (09:00→20:47)
[2017-08-26] MEDS: PSYLLIUM 28% PACKET PO ×2 (09:13→20:48)
[2017-08-26] MEDS: DOCUSATE SODIUM 10 MG/ML (10ML CUP) GTB ×2 (09:13→20:48)
[2017-08-26] MEDS: MEROPENEM 1 GM/50ML(PMX) 50 ML IVPB (09:14)
[2017-08-26] MEDS: MULTIVIT/CA CARB/B CMPLX/FA TAB GTB (09:15)
[2017-08-26] MEDS: OLANZAPINE 5 MG TAB PO ×2 (09:15→20:48)
[2017-08-26] MEDS: APIXABAN 5 MG TABLET PO ×2 (09:15→20:58)
[2017-08-26] MEDS: FOLIC ACID 1 MG TAB GTB (09:15)
[2017-08-26] MEDS: CHOLECALCIFEROL 1,000 UNIT TAB GTB (09:15)
[2017-08-26] MEDS: VITAMIN B COMPLEX/VIT C CAP PO (09:15)
[2017-08-26] MEDS: CYANOCOBALAMIN 500 MCG TAB GTB (09:15)
[2017-08-26] MEDS: ASCORBIC ACID 500 MG TAB GTB (09:15)
[2017-08-26] MEDS: BALSAM PERU/CASTOR OIL 60 GM TUBE TOP ×2 (09:16→21:52)
[2017-08-26] MEDS: SOD FERRIC GLUC COMPLX 125 MG in SOD CHLORIDE 0.9% 100 ML IVPB (17:00)
[2017-08-26] MEDS: CASPOFUNGIN 50 MG in SOD CHLORIDE 0.9% 250 ML IVPB (17:00)
[2017-08-26] MEDS: ATORVASTATIN 10 MG TAB PO (20:47)
[2017-08-26] MEDS: FAMOTIDINE 20 MG TAB PO (20:47)
[2017-08-26] MEDS: INSULIN GLARGINE [LANtus] 3 ML PEN SC (21:49)
[2017-08-27] MEDS: METOCLOPRAMIDE 10 MG INJ IV ×4 (00:34→19:04)
[2017-08-27] MEDS: INSULIN ASPART [NOVOLOG] 3 ML PEN SC ×6 (00:51→21:00)
[2017-08-27 01:30] LABS: LIPASE 50 U/L (23-300)
[2017-08-27] MEDS: FENTAnyl 50 MCG/ML VIAL IV ×5 (01:58→23:05)
[2017-08-27 05:13] LABS: ADD MAN DIFF? NO
[2017-08-27 05:17] LABS: WHITE BLOOD COUNT 17.9 10^3/ul (4.8-10.8)
[2017-08-27 05:17] LABS: ABNORMAL IP MESSAGE 1; BASOPHIL # 0.1 10^3/ul (0.0-0.1); BASOPHILS % 0.3 % (0.0-2.0); EOSINOPHILS # 0.2 10^3/ul (0.0-0.5); HEMATOCRIT 26.8 % (42.0-52.0); HEMOGLOBIN 8.3 g/dl (14.0-18.0); LYMPHOCYTES # 0.5 10^3/ul (0.8-2.9); LYMPHOCYTES % 2.7 % (15.0-51.0); MEAN CORPUSCULAR HEMOGLOBIN 28.9 pg (29.0-33.0); MEAN CORPUSCULAR VOLUME 93.4 fl (82.0-101.0); MONOCYTE # 1.2 10^3/ul (0.3-0.9); MONOCYTES % 6.6 % (0.0-11.0); NEUTROPHIL # 15.6 10^3/ul (1.6-7.5); NEUTROPHILS % 86.9 % (39.0-77.0); PLATELET COUNT 368 10^3/UL (140-415); POSITIVE DIFF @See below; RED BLOOD COUNT 2.87 10^6/ul (4.70-6.10); RED CELL DISTRIBUTION WIDTH 16.5 % (11.5-14.5)
[2017-08-27 05:40] LABS: ALANINE AMINOTRANSFERASE 38 IU/L (13-69); ALBUMIN 2.2 g/dl (3.3-4.9); ALBUMIN/GLOBULIN RATIO 0.78; ALKALINE PHOSPHATASE 145 IU/L (42-121); ANION GAP 16 (8-16); ASPARTATE AMINO TRANSFERASE 54 IU/L (15-46); BILIRUBIN,INDIRECT 0.1 mg/dl (0-1.1); BILIRUBIN,TOTAL 0.1 mg/dl (0.2-1.3); BLOOD UREA NITROGEN 37 mg/dl (7-20); CALCIUM 7.6 mg/dl (8.4-10.2); CARBON DIOXIDE 29 mmol/L (21-31); CHLORIDE 95 mmol/L (97-110); CREATININE 4.53 mg/dl (0.61-1.24); GLUCOSE 107 mg/dl (70-220); POTASSIUM 4.1 mmol/L (3.5-5.1); SODIUM 136 mmol/L (135-144)
[2017-08-27 05:42] LABS: VANCOMYCIN,RANDOM 15.3 ug/ml
[2017-08-27] MEDS: LORAZEPAM 2 MG INJ IV ×3 (08:35→19:44)
[2017-08-27] MEDS: CYANOCOBALAMIN 500 MCG TAB GTB (09:00)
[2017-08-27] MEDS: MULTIVIT/CA CARB/B CMPLX/FA TAB GTB (09:00)
[2017-08-27] MEDS: FOLIC ACID 1 MG TAB GTB (09:00)
[2017-08-27] MEDS: SEVELAMER CARBONATE 0.8 GM PKT GTB ×3 (09:00→19:43)
[2017-08-27] MEDS: CHOLECALCIFEROL 1,000 UNIT TAB GTB (09:00)
[2017-08-27] MEDS: ASCORBIC ACID 500 MG TAB GTB (09:00)
[2017-08-27] MEDS: VITAMIN B COMPLEX/VIT C CAP PO (09:00)
[2017-08-27] MEDS: COLLAGENASE 5 GM (UD JAR) TOP (09:05)
[2017-08-27] MEDS: DEXTROSE 5%-0.45% NACL 1,000 ML IV (11:50)
[2017-08-27] MEDS: HEPARIN 1000 UNITS/ML 10 ML INJ CATHETER (12:09)
[2017-08-27] MEDS: DOCUSATE SODIUM 10 MG/ML (10ML CUP) GTB ×2 (13:23→19:43)
[2017-08-27] MEDS: PSYLLIUM 28% PACKET PO ×2 (13:24→21:00)
[2017-08-27] MEDS: APIXABAN 5 MG TABLET PO ×2 (13:24→23:08)
[2017-08-27] MEDS: OLANZAPINE 5 MG TAB PO ×2 (13:24→21:00)
[2017-08-27] MEDS: BALSAM PERU/CASTOR OIL 60 GM TUBE TOP ×2 (13:25→21:00)
[2017-08-27] MEDS: MEROPENEM 1 GM/50ML(PMX) 50 ML IVPB (13:26)
[2017-08-27] MEDS: CASPOFUNGIN 50 MG in SOD CHLORIDE 0.9% 250 ML IVPB (17:00)
[2017-08-27] MEDS: SOD FERRIC GLUC COMPLX 125 MG in SOD CHLORIDE 0.9% 100 ML IVPB (17:45)
[2017-08-27] MEDS: VANCOMYCIN 1 GM 250 ML IVPB (18:00)
[2017-08-27] MEDS: ATORVASTATIN 10 MG TAB PO (19:43)
[2017-08-27] MEDS: FAMOTIDINE 20 MG TAB PO (21:00)
[2017-08-27] MEDS: INSULIN GLARGINE [LANtus] 3 ML PEN SC (21:00)
[2017-08-28] MEDS: DEXTROSE 5%-0.45% NACL 1,000 ML IV ×3 (01:00→18:12)
[2017-08-28] MEDS: METOCLOPRAMIDE 10 MG INJ IV ×5 (01:12→23:39)
[2017-08-28] MEDS: INSULIN ASPART [NOVOLOG] 3 ML PEN SC ×6 (01:14→20:24)
[2017-08-28] MEDS: LORAZEPAM 2 MG INJ IV ×3 (04:36→20:10)
[2017-08-28 05:36] LABS: ADD MAN DIFF? NO
[2017-08-28 05:41] LABS: WHITE BLOOD COUNT 17.2 10^3/ul (4.8-10.8)
[2017-08-28 05:41] LABS: ABNORMAL IP MESSAGE 1; BASOPHIL # 0.1 10^3/ul (0.0-0.1); BASOPHILS % 0.5 % (0.0-2.0); EOSINOPHILS # 0.1 10^3/ul (0.0-0.5); EOSINOPHILS % 0.8 % (0.0-7.0); HEMATOCRIT 29.4 % (42.0-52.0); LYMPHOCYTES # 0.5 10^3/ul (0.8-2.9); LYMPHOCYTES % 2.7 % (15.0-51.0); MEAN CORPUSCULAR HEMOGLOBIN 28.7 pg (29.0-33.0); MEAN CORPUSCULAR HGB CONC 30.6 g/dl (32.0-37.0); MEAN CORPUSCULAR VOLUME 93.6 fl (82.0-101.0); MEAN PLATELET VOLUME 8.9 fl (7.4-10.4); MONOCYTE # 1.2 10^3/ul (0.3-0.9); NEUTROPHILS % 86.9 % (39.0-77.0); PLATELET COUNT 377 10^3/UL (140-415); POSITIVE DIFF @See below; RED BLOOD COUNT 3.14 10^6/ul (4.70-6.10); RED CELL DISTRIBUTION WIDTH 16.5 % (11.5-14.5)
[2017-08-28 06:16] LABS: ANION GAP 13 (8-16); BLOOD UREA NITROGEN 25 mg/dl (7-20); CALCIUM 7.9 mg/dl (8.4-10.2); CARBON DIOXIDE 27 mmol/L (21-31); CHLORIDE 100 mmol/L (97-110); CREATININE 3.39 mg/dl (0.61-1.24); GLUCOSE 97 mg/dl (70-220); SODIUM 136 mmol/L (135-144)
[2017-08-28] MEDS: MULTIVIT/CA CARB/B CMPLX/FA TAB GTB (08:48)
[2017-08-28] MEDS: ASCORBIC ACID 500 MG TAB GTB (08:48)
[2017-08-28] MEDS: FOLIC ACID 1 MG TAB GTB (08:48)
[2017-08-28] MEDS: CYANOCOBALAMIN 500 MCG TAB GTB (08:48)
[2017-08-28] MEDS: SEVELAMER CARBONATE 0.8 GM PKT GTB ×3 (08:48→20:34)
[2017-08-28] MEDS: VITAMIN B COMPLEX/VIT C CAP PO (08:48)
[2017-08-28] MEDS: CHOLECALCIFEROL 1,000 UNIT TAB GTB (08:49)
[2017-08-28] MEDS: OLANZAPINE 5 MG TAB PO ×2 (08:49→20:33)
[2017-08-28] MEDS: APIXABAN 5 MG TABLET PO ×2 (08:49→20:33)
[2017-08-28] MEDS: DOCUSATE SODIUM 10 MG/ML (10ML CUP) GTB ×2 (08:49→20:34)
[2017-08-28] MEDS: PSYLLIUM 28% PACKET PO ×2 (08:56→20:34)
[2017-08-28] MEDS: MEROPENEM 500MG/50 ML (PMX) 50 ML IVPB ×2 (09:44→20:33)
[2017-08-28] MEDS: BALSAM PERU/CASTOR OIL 60 GM TUBE TOP ×2 (09:46→20:34)
[2017-08-28] MEDS: COLLAGENASE 5 GM (UD JAR) TOP (12:23)
[2017-08-28] MEDS: FENTAnyl 50 MCG/ML VIAL IV ×3 (14:10→23:10)
[2017-08-28] MEDS: CASPOFUNGIN 50 MG in SOD CHLORIDE 0.9% 250 ML IVPB (17:06)
[2017-08-28] MEDS: EPOETIN 10000 UNITS/1 ML INJ (ESRD) SC (17:44)
[2017-08-28] MEDS: INSULIN GLARGINE [LANtus] 3 ML PEN SC (20:26)
[2017-08-28] MEDS: ATORVASTATIN 10 MG TAB PO (20:33)
[2017-08-28] MEDS: FAMOTIDINE 20 MG TAB PO (20:33)
[2017-08-29] MEDS: LORAZEPAM 2 MG INJ IV ×6 (00:38→22:43)
[2017-08-29] MEDS: INSULIN ASPART [NOVOLOG] 3 ML PEN SC ×6 (01:00→21:15)
[2017-08-29] MEDS: FENTAnyl 50 MCG/ML VIAL IV ×7 (02:16→19:59)
[2017-08-29] MEDS: METOCLOPRAMIDE 10 MG INJ IV ×4 (05:02→23:56)
[2017-08-29 05:13] LABS: ADD MAN DIFF? NO
[2017-08-29 05:17] LABS: ABNORMAL IP MESSAGE 1; BASOPHIL # 0.1 10^3/ul (0.0-0.1); BASOPHILS % 0.6 % (0.0-2.0); EOSINOPHILS # 0.1 10^3/ul (0.0-0.5); EOSINOPHILS % 0.8 % (0.0-7.0); HEMATOCRIT 27.7 % (42.0-52.0); HEMOGLOBIN 8.6 g/dl (14.0-18.0); LYMPHOCYTES # 0.6 10^3/ul (0.8-2.9); LYMPHOCYTES % 4.1 % (15.0-51.0); MEAN CORPUSCULAR HEMOGLOBIN 29.1 pg (29.0-33.0); MEAN CORPUSCULAR VOLUME 93.6 fl (82.0-101.0); MEAN PLATELET VOLUME 8.7 fl (7.4-10.4); MONOCYTE # 0.7 10^3/ul (0.3-0.9); MONOCYTES % 5.3 % (0.0-11.0); NEUTROPHIL # 12.3 10^3/ul (1.6-7.5); NEUTROPHILS % 87.2 % (39.0-77.0); PLATELET COUNT 334 10^3/UL (140-415); POSITIVE DIFF @See below; RED BLOOD COUNT 2.96 10^6/ul (4.70-6.10); RED CELL DISTRIBUTION WIDTH 16.5 % (11.5-14.5)
[2017-08-29 05:17] LABS: WHITE BLOOD COUNT 14.1 10^3/ul (4.8-10.8)
[2017-08-29 05:51] LABS: ANION GAP 13 (8-16); BLOOD UREA NITROGEN 31 mg/dl (7-20); CALCIUM 7.6 mg/dl (8.4-10.2); CARBON DIOXIDE 27 mmol/L (21-31); CHLORIDE 100 mmol/L (97-110); CREATININE 3.72 mg/dl (0.61-1.24); GLUCOSE 125 mg/dl (70-220); MAGNESIUM 2.2 mg/dl (1.7-2.5); PHOSPHORUS 6.3 mg/dl (2.5-4.9); POTASSIUM 3.8 mmol/L (3.5-5.1); SODIUM 136 mmol/L (135-144)
[2017-08-29] MEDS: DEXTROSE 5%-0.45% NACL 1,000 ML IV (06:32)
[2017-08-29] MEDS: APIXABAN 5 MG TABLET PO ×2 (08:03→21:14)
[2017-08-29] MEDS: CYANOCOBALAMIN 500 MCG TAB GTB (08:03)
[2017-08-29] MEDS: VITAMIN B COMPLEX/VIT C CAP PO (08:05)
[2017-08-29] MEDS: OLANZAPINE 5 MG TAB PO ×2 (08:05→20:39)
[2017-08-29] MEDS: ASCORBIC ACID 500 MG TAB GTB (08:05)
[2017-08-29] MEDS: MEROPENEM 500MG/50 ML (PMX) 50 ML IVPB ×2 (08:06→20:39)
[2017-08-29] MEDS: SEVELAMER CARBONATE 0.8 GM PKT GTB ×3 (08:06→20:38)
[2017-08-29] MEDS: MULTIVIT/CA CARB/B CMPLX/FA TAB GTB (08:06)
[2017-08-29] MEDS: FOLIC ACID 1 MG TAB GTB (08:06)
[2017-08-29] MEDS: PSYLLIUM 28% PACKET PO ×2 (08:06→20:39)
[2017-08-29] MEDS: DOCUSATE SODIUM 10 MG/ML (10ML CUP) GTB ×2 (08:06→20:38)
[2017-08-29] MEDS: CHOLECALCIFEROL 1,000 UNIT TAB GTB (08:06)
[2017-08-29] MEDS: HEPARIN 1000 UNITS/ML 10 ML INJ CATHETER (09:03)
[2017-08-29] MEDS: COLLAGENASE 5 GM (UD JAR) TOP (09:40)
[2017-08-29] MEDS: BALSAM PERU/CASTOR OIL 60 GM TUBE TOP ×2 (09:40→20:40)
[2017-08-29 11:32] LABS: PROCALCITONIN 2.42 ng/mL (<0.10)
[2017-08-29] MEDS: CASPOFUNGIN 50 MG in SOD CHLORIDE 0.9% 250 ML IVPB (15:22)
[2017-08-29] MEDS: FAMOTIDINE 20 MG TAB PO (20:39)
[2017-08-29] MEDS: ATORVASTATIN 10 MG TAB PO (20:39)
[2017-08-29] MEDS: INSULIN GLARGINE [LANtus] 3 ML PEN SC (21:15)
[2017-08-30] MEDS: INSULIN ASPART [NOVOLOG] 3 ML PEN SC ×6 (00:30→21:38)
[2017-08-30] MEDS: DEXTROSE 5%-0.45% NACL 1,000 ML IV (04:37)
[2017-08-30] MEDS: LORAZEPAM 2 MG INJ IV ×3 (04:43→20:29)
[2017-08-30] MEDS: FENTAnyl 50 MCG/ML VIAL IV ×3 (04:43→21:49)
[2017-08-30] MEDS: METOCLOPRAMIDE 10 MG INJ IV ×3 (05:30→17:22)
[2017-08-30 05:52] LABS: ADD MAN DIFF? NO
[2017-08-30 06:00] LABS: ABNORMAL IP MESSAGE 1; BASOPHIL # 0.1 10^3/ul (0.0-0.1); BASOPHILS % 0.6 % (0.0-2.0); EOSINOPHILS # 0.1 10^3/ul (0.0-0.5); HEMATOCRIT 27.7 % (42.0-52.0); HEMOGLOBIN 8.6 g/dl (14.0-18.0); LYMPHOCYTES # 0.3 10^3/ul (0.8-2.9); LYMPHOCYTES % 2.7 % (15.0-51.0); MEAN CORPUSCULAR HEMOGLOBIN 29.1 pg (29.0-33.0); MEAN CORPUSCULAR VOLUME 93.6 fl (82.0-101.0); MEAN PLATELET VOLUME 8.9 fl (7.4-10.4); MONOCYTE # 0.7 10^3/ul (0.3-0.9); NEUTROPHIL # 10.2 10^3/ul (1.6-7.5); NEUTROPHILS % 87.1 % (39.0-77.0); PLATELET COUNT 300 10^3/UL (140-415); POSITIVE DIFF @See below; RED BLOOD COUNT 2.96 10^6/ul (4.70-6.10); RED CELL DISTRIBUTION WIDTH 16.4 % (11.5-14.5)
[2017-08-30 06:00] LABS: WHITE BLOOD COUNT 11.8 10^3/ul (4.8-10.8)
[2017-08-30 06:19] LABS: ANION GAP 15 (8-16); BLOOD UREA NITROGEN 37 mg/dl (7-20); CALCIUM 7.6 mg/dl (8.4-10.2); CARBON DIOXIDE 25 mmol/L (21-31); CHLORIDE 99 mmol/L (97-110); CREATININE 4.24 mg/dl (0.61-1.24); GLUCOSE 118 mg/dl (70-220); POTASSIUM 4.3 mmol/L (3.5-5.1); SODIUM 135 mmol/L (135-144)
[2017-08-30] MEDS: VITAMIN B COMPLEX/VIT C CAP PO (09:28)
[2017-08-30] MEDS: DOCUSATE SODIUM 10 MG/ML (10ML CUP) GTB ×2 (09:28→21:00)
[2017-08-30] MEDS: MULTIVIT/CA CARB/B CMPLX/FA TAB GTB (09:28)
[2017-08-30] MEDS: FOLIC ACID 1 MG TAB GTB (09:28)
[2017-08-30] MEDS: OLANZAPINE 5 MG TAB PO ×2 (09:28→21:48)
[2017-08-30] MEDS: CHOLECALCIFEROL 1,000 UNIT TAB GTB (09:29)
[2017-08-30] MEDS: CYANOCOBALAMIN 500 MCG TAB GTB (09:29)
[2017-08-30] MEDS: SEVELAMER CARBONATE 0.8 GM PKT GTB ×3 (09:29→21:49)
[2017-08-30] MEDS: ASCORBIC ACID 500 MG TAB GTB (09:29)
[2017-08-30] MEDS: PSYLLIUM 28% PACKET PO ×2 (09:29→21:00)
[2017-08-30] MEDS: APIXABAN 5 MG TABLET PO ×2 (09:39→21:48)
[2017-08-30] MEDS: CEFTAZIDIME 1GM/50 ML (PMX) 50 ML IVPB (09:39)
[2017-08-30] MEDS: BALSAM PERU/CASTOR OIL 60 GM TUBE TOP ×2 (09:44→21:49)
[2017-08-30] MEDS: COLLAGENASE 5 GM (UD JAR) TOP (09:44)
[2017-08-30] MEDS: ALBUMIN HUMAN 25% 100 ML IV (12:09)
[2017-08-30] MEDS ORDERED: PENDING SANTYL ORDER FOR WOUND CARE XX (14:30)
[2017-08-30] MEDS: HEPARIN 1000 UNITS/ML 10 ML INJ CATHETER (15:54)
[2017-08-30] MEDS: CASPOFUNGIN 50 MG in SOD CHLORIDE 0.9% 250 ML IVPB (16:42)
[2017-08-30] MEDS: EPOETIN 10000 UNITS/1 ML INJ (ESRD) SC (17:48)
[2017-08-30] MEDS: INSULIN GLARGINE [LANtus] 3 ML PEN SC (21:33)
[2017-08-30] MEDS: ATORVASTATIN 10 MG TAB PO (21:48)
[2017-08-30] MEDS: FAMOTIDINE 20 MG TAB PO (21:49)
[2017-08-31] MEDS: DEXTROSE 5%-0.45% NACL 1,000 ML IV ×2 (00:13→18:05)
[2017-08-31] MEDS: LORAZEPAM 2 MG INJ IV ×5 (00:17→21:02)
[2017-08-31] MEDS: METOCLOPRAMIDE 10 MG INJ IV ×4 (00:26→17:27)
[2017-08-31] MEDS: FENTAnyl 50 MCG/ML VIAL IV ×5 (00:27→21:02)
[2017-08-31] MEDS: INSULIN ASPART [NOVOLOG] 3 ML PEN SC ×6 (00:33→20:38)
[2017-08-31 05:50] LABS: ADD MAN DIFF? NO
[2017-08-31 05:57] LABS: WHITE BLOOD COUNT 8.4 10^3/ul (4.8-10.8)
[2017-08-31 05:57] LABS: ABNORMAL IP MESSAGE 1; BASOPHILS % 0.4 % (0.0-2.0); EOSINOPHILS # 0.1 10^3/ul (0.0-0.5); EOSINOPHILS % 1.6 % (0.0-7.0); HEMATOCRIT 23.9 % (42.0-52.0); HEMOGLOBIN 7.2 g/dl (14.0-18.0); LYMPHOCYTES # 0.4 10^3/ul (0.8-2.9); LYMPHOCYTES % 4.4 % (15.0-51.0); MEAN CORPUSCULAR HEMOGLOBIN 28.5 pg (29.0-33.0); MEAN CORPUSCULAR HGB CONC 30.1 g/dl (32.0-37.0); MEAN CORPUSCULAR VOLUME 94.5 fl (82.0-101.0); MONOCYTE # 0.7 10^3/ul (0.3-0.9); MONOCYTES % 8.5 % (0.0-11.0); NEUTROPHIL # 6.8 10^3/ul (1.6-7.5); NEUTROPHILS % 81.2 % (39.0-77.0); PLATELET COUNT 223 10^3/UL (140-415); POSITIVE DIFF @See below; RED BLOOD COUNT 2.53 10^6/ul (4.70-6.10); RED CELL DISTRIBUTION WIDTH 16.8 % (11.5-14.5)
[2017-08-31 06:27] LABS: ANION GAP 11 (8-16); BLOOD UREA NITROGEN 30 mg/dl (7-20); CALCIUM 7.3 mg/dl (8.4-10.2); CARBON DIOXIDE 26 mmol/L (21-31); CHLORIDE 102 mmol/L (97-110); CREATININE 3.37 mg/dl (0.61-1.24); GLUCOSE 140 mg/dl (70-220); POTASSIUM 3.8 mmol/L (3.5-5.1); SODIUM 135 mmol/L (135-144)
[2017-08-31] MEDS: MULTIVIT/CA CARB/B CMPLX/FA TAB GTB (08:48)
[2017-08-31] MEDS: CHOLECALCIFEROL 1,000 UNIT TAB GTB (08:48)
[2017-08-31] MEDS: DOCUSATE SODIUM 10 MG/ML (10ML CUP) GTB ×2 (08:48→20:33)
[2017-08-31] MEDS: SEVELAMER CARBONATE 0.8 GM PKT GTB ×3 (08:48→20:33)
[2017-08-31] MEDS: CYANOCOBALAMIN 500 MCG TAB GTB (08:48)
[2017-08-31] MEDS: VITAMIN B COMPLEX/VIT C CAP PO (08:48)
[2017-08-31] MEDS: OLANZAPINE 5 MG TAB PO ×2 (08:48→20:32)
[2017-08-31] MEDS: APIXABAN 5 MG TABLET PO ×2 (08:49→20:33)
[2017-08-31] MEDS: PSYLLIUM 28% PACKET PO ×2 (08:49→20:33)
[2017-08-31] MEDS: ASCORBIC ACID 500 MG TAB GTB (08:49)
[2017-08-31] MEDS: FOLIC ACID 1 MG TAB GTB (08:52)
[2017-08-31] MEDS: CEFTAZIDIME 1GM/50 ML (PMX) 50 ML IVPB (08:56)
[2017-08-31] MEDS: COLLAGENASE 5 GM (UD JAR) TOP (08:57)
[2017-08-31] MEDS: BALSAM PERU/CASTOR OIL 60 GM TUBE TOP ×2 (08:57→20:34)
[2017-08-31 11:18] LABS: ALANINE AMINOTRANSFERASE 25 IU/L (13-69); ALBUMIN 2.1 g/dl (3.3-4.9); ALBUMIN/GLOBULIN RATIO 0.84; ALKALINE PHOSPHATASE 97 IU/L (42-121); ANION GAP 15 (8-16); ASPARTATE AMINO TRANSFERASE 17 IU/L (15-46); BLOOD UREA NITROGEN 30 mg/dl (7-20); CALCIUM 7.5 mg/dl (8.4-10.2); CARBON DIOXIDE 26 mmol/L (21-31); CHLORIDE 98 mmol/L (97-110); GLUCOSE 137 mg/dl (70-220); POTASSIUM 3.8 mmol/L (3.5-5.1); SODIUM 135 mmol/L (135-144); TOTAL PROTEIN 4.6 g/dl (6.1-8.1)
[2017-08-31 11:35] LABS: BILIRUBIN,INDIRECT 0.2 mg/dl (0-1.1); BILIRUBIN,TOTAL 0.2 mg/dl (0.2-1.3)
[2017-08-31] MEDS: CASPOFUNGIN 50 MG in SOD CHLORIDE 0.9% 250 ML IVPB (16:31)
[2017-08-31 19:35] LABS: ADD MAN DIFF? NO
[2017-08-31 19:36] LABS: ABNORMAL IP MESSAGE 1; BASOPHILS % 0.4 % (0.0-2.0); EOSINOPHILS # 0.2 10^3/ul (0.0-0.5); EOSINOPHILS % 1.6 % (0.0-7.0); HEMATOCRIT 25.1 % (42.0-52.0); HEMOGLOBIN 7.7 g/dl (14.0-18.0); LYMPHOCYTES # 0.5 10^3/ul (0.8-2.9); LYMPHOCYTES % 4.5 % (15.0-51.0); MEAN CORPUSCULAR HEMOGLOBIN 28.8 pg (29.0-33.0); MEAN CORPUSCULAR HGB CONC 30.7 g/dl (32.0-37.0); MEAN PLATELET VOLUME 8.6 fl (7.4-10.4); MONOCYTES % 9.8 % (0.0-11.0); NEUTROPHILS % 79.9 % (39.0-77.0); PLATELET COUNT 207 10^3/UL (140-415); POSITIVE DIFF @See below; RED BLOOD COUNT 2.67 10^6/ul (4.70-6.10); RED CELL DISTRIBUTION WIDTH 16.6 % (11.5-14.5)
[2017-08-31] MEDS: ATORVASTATIN 10 MG TAB PO (20:32)
[2017-08-31] MEDS: FAMOTIDINE 20 MG TAB PO (20:33)
[2017-08-31] MEDS: INSULIN GLARGINE [LANtus] 3 ML PEN SC (20:37)
[2017-09-01] MEDS: METOCLOPRAMIDE 10 MG INJ IV ×5 (00:20→23:48)
[2017-09-01] MEDS: INSULIN ASPART [NOVOLOG] 3 ML PEN SC ×6 (01:31→21:06)
[2017-09-01 05:13] LABS: ADD MAN DIFF? NO
[2017-09-01] MEDS: FENTAnyl 50 MCG/ML VIAL IV ×7 (05:18→23:49)
[2017-09-01] MEDS: LORAZEPAM 2 MG INJ IV ×4 (05:18→23:50)
[2017-09-01 05:29] LABS: ABNORMAL IP MESSAGE 1; BASOPHIL # 0.1 10^3/ul (0.0-0.1); BASOPHILS % 0.6 % (0.0-2.0); EOSINOPHILS # 0.2 10^3/ul (0.0-0.5); EOSINOPHILS % 1.9 % (0.0-7.0); HEMATOCRIT 26.4 % (42.0-52.0); LYMPHOCYTES # 0.5 10^3/ul (0.8-2.9); LYMPHOCYTES % 4.5 % (15.0-51.0); MEAN CORPUSCULAR HEMOGLOBIN 28.5 pg (29.0-33.0); MEAN CORPUSCULAR HGB CONC 30.3 g/dl (32.0-37.0); MEAN PLATELET VOLUME 8.8 fl (7.4-10.4); NEUTROPHIL # 8.6 10^3/ul (1.6-7.5); NEUTROPHILS % 80.2 % (39.0-77.0); PLATELET COUNT 236 10^3/UL (140-415); POSITIVE DIFF @See below; RED BLOOD COUNT 2.81 10^6/ul (4.70-6.10); RED CELL DISTRIBUTION WIDTH 16.4 % (11.5-14.5)
[2017-09-01 05:29] LABS: WHITE BLOOD COUNT 10.7 10^3/ul (4.8-10.8)
[2017-09-01] MEDS: SEVELAMER CARBONATE 0.8 GM PKT GTB ×3 (08:04→20:45)
[2017-09-01] MEDS: CYANOCOBALAMIN 500 MCG TAB GTB (08:05)
[2017-09-01] MEDS: OLANZAPINE 5 MG TAB PO ×2 (08:05→20:45)
[2017-09-01] MEDS: ASCORBIC ACID 500 MG TAB GTB (08:06)
[2017-09-01] MEDS: CHOLECALCIFEROL 1,000 UNIT TAB GTB (08:07)
[2017-09-01] MEDS: APIXABAN 5 MG TABLET PO ×2 (08:07→20:45)
[2017-09-01] MEDS: MULTIVIT/CA CARB/B CMPLX/FA TAB GTB (08:07)
[2017-09-01] MEDS: VITAMIN B COMPLEX/VIT C CAP PO (08:07)
[2017-09-01] MEDS: PSYLLIUM 28% PACKET PO ×2 (08:08→20:45)
[2017-09-01] MEDS: CEFTAZIDIME 1GM/50 ML (PMX) 50 ML IVPB (08:08)
[2017-09-01] MEDS: BALSAM PERU/CASTOR OIL 60 GM TUBE TOP ×2 (08:12→21:04)
[2017-09-01] MEDS: FOLIC ACID 1 MG TAB GTB (08:12)
[2017-09-01] MEDS: DOCUSATE SODIUM 10 MG/ML (10ML CUP) GTB ×2 (08:12→20:45)
[2017-09-01] MEDS: COLLAGENASE 5 GM (UD JAR) TOP (08:12)
[2017-09-01] MEDS: DEXTROSE 5%-0.45% NACL 1,000 ML IV (08:16)
[2017-09-01 08:18] LABS: CHLORIDE 101 mmol/L (97-110); POTASSIUM 4.5 mmol/L (3.5-5.1); SODIUM 136 mmol/L (135-144)
[2017-09-01 08:19] LABS: ANION GAP 15 (8-16); BLOOD UREA NITROGEN 37 mg/dl (7-20); CALCIUM 7.5 mg/dl (8.4-10.2); CARBON DIOXIDE 25 mmol/L (21-31); CREATININE 3.76 mg/dl (0.61-1.24); GLUCOSE 104 mg/dl (70-220)
[2017-09-01] MEDS: HEPARIN 1000 UNITS/ML 10 ML INJ CATHETER (12:26)
[2017-09-01] MEDS: oxyCODONE 5 MG TAB PO (17:46)
[2017-09-01] MEDS: EPOETIN 10000 UNITS/1 ML INJ (ESRD) SC (17:50)
[2017-09-01] MEDS: FAMOTIDINE 20 MG TAB PO (20:45)
[2017-09-01] MEDS: ATORVASTATIN 10 MG TAB PO (20:45)
[2017-09-01] MEDS: INSULIN GLARGINE [LANtus] 3 ML PEN SC (21:05)
[2017-09-02] MEDS: DEXTROSE 5%-0.45% NACL 1,000 ML IV ×2 (00:25→16:00)
[2017-09-02] MEDS: INSULIN ASPART [NOVOLOG] 3 ML PEN SC ×6 (01:04→21:19)
[2017-09-02] MEDS: FENTAnyl 50 MCG/ML VIAL IV ×5 (03:27→20:02)
[2017-09-02 05:12] LABS: ADD MAN DIFF? NO
[2017-09-02 05:13] LABS: WHITE BLOOD COUNT 8.9 10^3/ul (4.8-10.8)
[2017-09-02 05:13] LABS: ABNORMAL IP MESSAGE 1; BASOPHIL # 0.1 10^3/ul (0.0-0.1); BASOPHILS % 0.6 % (0.0-2.0); EOSINOPHILS # 0.2 10^3/ul (0.0-0.5); EOSINOPHILS % 2.2 % (0.0-7.0); HEMATOCRIT 24.4 % (42.0-52.0); HEMOGLOBIN 7.4 g/dl (14.0-18.0); LYMPHOCYTES # 0.4 10^3/ul (0.8-2.9); LYMPHOCYTES % 4.5 % (15.0-51.0); MEAN CORPUSCULAR HEMOGLOBIN 28.4 pg (29.0-33.0); MEAN CORPUSCULAR HGB CONC 30.3 g/dl (32.0-37.0); MEAN CORPUSCULAR VOLUME 93.5 fl (82.0-101.0); MEAN PLATELET VOLUME 8.8 fl (7.4-10.4); MONOCYTE # 0.7 10^3/ul (0.3-0.9); MONOCYTES % 8.3 % (0.0-11.0); NEUTROPHIL # 7.2 10^3/ul (1.6-7.5); NEUTROPHILS % 80.7 % (39.0-77.0); PLATELET COUNT 203 10^3/UL (140-415); POSITIVE DIFF @See below; RED BLOOD COUNT 2.61 10^6/ul (4.70-6.10); RED CELL DISTRIBUTION WIDTH 16.2 % (11.5-14.5)
[2017-09-02 05:36] LABS: ANION GAP 13 (8-16); BLOOD UREA NITROGEN 26 mg/dl (7-20); CALCIUM 7.4 mg/dl (8.4-10.2); CARBON DIOXIDE 26 mmol/L (21-31); CHLORIDE 102 mmol/L (97-110); CREATININE 2.88 mg/dl (0.61-1.24); GLUCOSE 131 mg/dl (70-220); SODIUM 137 mmol/L (135-144)
[2017-09-02] MEDS: METOCLOPRAMIDE 10 MG INJ IV ×4 (06:01→23:23)
[2017-09-02] MEDS: APIXABAN 5 MG TABLET PO ×2 (08:01→21:05)
[2017-09-02] MEDS: MULTIVIT/CA CARB/B CMPLX/FA TAB GTB (08:01)
[2017-09-02] MEDS: VITAMIN B COMPLEX/VIT C CAP PO (08:01)
[2017-09-02] MEDS: ASCORBIC ACID 500 MG TAB GTB (08:02)
[2017-09-02] MEDS: CYANOCOBALAMIN 500 MCG TAB GTB (08:02)
[2017-09-02] MEDS: CHOLECALCIFEROL 1,000 UNIT TAB GTB (08:02)
[2017-09-02] MEDS: OLANZAPINE 5 MG TAB PO ×2 (08:03→21:05)
[2017-09-02] MEDS: LORAZEPAM 1 MG TAB PO (08:04)
[2017-09-02] MEDS: SEVELAMER CARBONATE 0.8 GM PKT GTB ×3 (08:04→21:05)
[2017-09-02] MEDS: FOLIC ACID 1 MG TAB GTB (08:04)
[2017-09-02] MEDS: DOCUSATE SODIUM 10 MG/ML (10ML CUP) GTB ×2 (08:05→21:06)
[2017-09-02] MEDS: COLLAGENASE 5 GM (UD JAR) TOP (08:06)
[2017-09-02] MEDS: CEFTAZIDIME 1GM/50 ML (PMX) 50 ML IVPB (08:06)
[2017-09-02] MEDS: PSYLLIUM 28% PACKET PO ×2 (08:06→21:05)
[2017-09-02] MEDS: BALSAM PERU/CASTOR OIL 60 GM TUBE TOP ×2 (08:07→21:19)
[2017-09-02] MEDS: LORAZEPAM 2 MG INJ IV ×3 (10:45→18:50)
[2017-09-02] MEDS: FAMOTIDINE 20 MG TAB PO (21:05)
[2017-09-02] MEDS: ATORVASTATIN 10 MG TAB PO (21:05)
[2017-09-02] MEDS: INSULIN GLARGINE [LANtus] 3 ML PEN SC (21:19)
[2017-09-03] MEDS: FENTAnyl 50 MCG/ML VIAL IV ×5 (00:04→17:57)
[2017-09-03] MEDS: LORAZEPAM 2 MG INJ IV ×4 (01:04→17:58)
[2017-09-03] MEDS: INSULIN ASPART [NOVOLOG] 3 ML PEN SC ×6 (01:21→20:55)
[2017-09-03 05:42] LABS: ADD MAN DIFF? NO
[2017-09-03 05:50] LABS: WHITE BLOOD COUNT 9.2 10^3/ul (4.8-10.8)
[2017-09-03 05:50] LABS: ABNORMAL IP MESSAGE 1; BASOPHIL # 0.1 10^3/ul (0.0-0.1); BASOPHILS % 0.8 % (0.0-2.0); EOSINOPHILS # 0.2 10^3/ul (0.0-0.5); EOSINOPHILS % 2.6 % (0.0-7.0); HEMATOCRIT 24.8 % (42.0-52.0); HEMOGLOBIN 7.5 g/dl (14.0-18.0); LYMPHOCYTES # 0.4 10^3/ul (0.8-2.9); LYMPHOCYTES % 4.7 % (15.0-51.0); MEAN CORPUSCULAR HEMOGLOBIN 28.3 pg (29.0-33.0); MEAN CORPUSCULAR HGB CONC 30.2 g/dl (32.0-37.0); MEAN CORPUSCULAR VOLUME 93.6 fl (82.0-101.0); MEAN PLATELET VOLUME 9.1 fl (7.4-10.4); MONOCYTE # 0.7 10^3/ul (0.3-0.9); MONOCYTES % 7.9 % (0.0-11.0); NEUTROPHIL # 7.4 10^3/ul (1.6-7.5); NEUTROPHILS % 80.2 % (39.0-77.0); PLATELET COUNT 218 10^3/UL (140-415); POSITIVE DIFF @See below; RED BLOOD COUNT 2.65 10^6/ul (4.70-6.10); RED CELL DISTRIBUTION WIDTH 16.1 % (11.5-14.5)
[2017-09-03] MEDS: METOCLOPRAMIDE 10 MG INJ IV ×3 (05:55→17:21)
[2017-09-03 06:23] LABS: ANION GAP 16 (8-16); BLOOD UREA NITROGEN 34 mg/dl (7-20); CALCIUM 7.5 mg/dl (8.4-10.2); CARBON DIOXIDE 25 mmol/L (21-31); CHLORIDE 98 mmol/L (97-110); CREATININE 3.03 mg/dl (0.61-1.24); GLUCOSE 95 mg/dl (70-220); POTASSIUM 4.3 mmol/L (3.5-5.1); SODIUM 135 mmol/L (135-144)
[2017-09-03] MEDS: CEFTAZIDIME 1GM/50 ML (PMX) 50 ML IVPB (08:08)
[2017-09-03] MEDS: DOCUSATE SODIUM 10 MG/ML (10ML CUP) GTB ×2 (08:08→20:45)
[2017-09-03] MEDS: FOLIC ACID 1 MG TAB GTB (08:09)
[2017-09-03] MEDS: CHOLECALCIFEROL 1,000 UNIT TAB GTB (08:09)
[2017-09-03] MEDS: MULTIVIT/CA CARB/B CMPLX/FA TAB GTB (08:09)
[2017-09-03] MEDS: VITAMIN B COMPLEX/VIT C CAP PO (08:09)
[2017-09-03] MEDS: CYANOCOBALAMIN 500 MCG TAB GTB (08:09)
[2017-09-03] MEDS: PSYLLIUM 28% PACKET PO ×2 (08:09→20:45)
[2017-09-03] MEDS: SEVELAMER CARBONATE 0.8 GM PKT GTB ×3 (08:09→20:45)
[2017-09-03] MEDS: ASCORBIC ACID 500 MG TAB GTB (08:10)
[2017-09-03] MEDS: APIXABAN 5 MG TABLET PO ×2 (08:10→20:45)
[2017-09-03] MEDS: OLANZAPINE 5 MG TAB PO ×2 (08:10→20:45)
[2017-09-03] MEDS ORDERED: VANCOMYCIN IV PER PHARMACY XX (08:30)
[2017-09-03] MEDS ORDERED: PENDING SANTYL ORDER FOR WOUND CARE XX (08:30)
[2017-09-03] MEDS: COLLAGENASE 5 GM (UD JAR) TOP (08:42)
[2017-09-03] MEDS: BALSAM PERU/CASTOR OIL 60 GM TUBE TOP ×2 (08:42→20:46)
[2017-09-03] MEDS ORDERED: VANCOMYCIN 2 GM in SOD CHLORIDE 0.9% 500 ML IVPB (10:30)
[2017-09-03] MEDS ORDERED: CASPOFUNGIN 50 MG in SOD CHLORIDE 0.9% 250 ML IVPB (10:30)
[2017-09-03] MEDS ORDERED: MEROPENEM 500MG/50 ML (PMX) 50 ML IVPB (10:30)
[2017-09-03] MEDS: DEXTROSE 5%-0.45% NACL 1,000 ML IV (12:16)
[2017-09-03 13:46] LABS: AADO2 Arterial 87.6 mmHg (7.0-24.0); Allen Test ACCEPTAB; Arterial Base Excess 1.7 mmol/L (-3.0-3); Arterial Blood Gas Oxygen Sat 94.8 mmHG (95.0-100.0); Arterial COHb 0.8 % (0.0-3.0); Arterial Fraction of Oxyhgb 93.8 % (93.0-99.0); Arterial HCO3 26.3 mmol/L (22.0-26.0); Arterial MetHb 0.3 % (0.0-1.5); Arterial Total Hemglobin 8.6 g/dl (12.0-18.0); Arterial pCO2 41.2 mmhg (35-45); Blood Gas PS 10; MODE VENT - CPAP; Site Right Radial
[2017-09-03] MEDS: oxyCODONE 5 MG TAB PO (19:38)
[2017-09-03] MEDS: ATORVASTATIN 10 MG TAB PO (20:45)
[2017-09-03] MEDS: FAMOTIDINE 20 MG TAB PO (20:45)
[2017-09-03] MEDS: INSULIN GLARGINE [LANtus] 3 ML PEN SC (20:56)
[2017-09-04] MEDS: INSULIN ASPART [NOVOLOG] 3 ML PEN SC ×6 (01:00→21:00)
[2017-09-04] MEDS: METOCLOPRAMIDE 10 MG INJ IV ×4 (01:31→17:03)
[2017-09-04] MEDS: oxyCODONE 5 MG TAB PO ×3 (01:39→13:49)
[2017-09-04 05:55] LABS: ADD MAN DIFF? NO
[2017-09-04 06:07] LABS: ABNORMAL IP MESSAGE 1; BASOPHIL # 0.1 10^3/ul (0.0-0.1); BASOPHILS % 0.7 % (0.0-2.0); EOSINOPHILS # 0.3 10^3/ul (0.0-0.5); EOSINOPHILS % 2.6 % (0.0-7.0); HEMATOCRIT 25.9 % (42.0-52.0); LYMPHOCYTES # 0.4 10^3/ul (0.8-2.9); LYMPHOCYTES % 4.1 % (15.0-51.0); MEAN CORPUSCULAR HEMOGLOBIN 28.9 pg (29.0-33.0); MEAN CORPUSCULAR HGB CONC 30.9 g/dl (32.0-37.0); MEAN CORPUSCULAR VOLUME 93.5 fl (82.0-101.0); MEAN PLATELET VOLUME 9.1 fl (7.4-10.4); MONOCYTE # 0.8 10^3/ul (0.3-0.9); MONOCYTES % 7.3 % (0.0-11.0); NEUTROPHIL # 8.3 10^3/ul (1.6-7.5); NEUTROPHILS % 81.5 % (39.0-77.0); PLATELET COUNT 241 10^3/UL (140-415); POSITIVE DIFF @See below; RED BLOOD COUNT 2.77 10^6/ul (4.70-6.10); RED CELL DISTRIBUTION WIDTH 16.1 % (11.5-14.5)
[2017-09-04 06:07] LABS: WHITE BLOOD COUNT 10.2 10^3/ul (4.8-10.8)
[2017-09-04 06:35] LABS: ANION GAP 16 (8-16); BLOOD UREA NITROGEN 38 mg/dl (7-20); CALCIUM 7.6 mg/dl (8.4-10.2); CARBON DIOXIDE 23 mmol/L (21-31); CHLORIDE 101 mmol/L (97-110); CREATININE 3.39 mg/dl (0.61-1.24); GLUCOSE 140 mg/dl (70-220); POTASSIUM 4.6 mmol/L (3.5-5.1); SODIUM 135 mmol/L (135-144)
[2017-09-04] MEDS: LORAZEPAM 2 MG INJ IV ×3 (07:33→19:55)
[2017-09-04] MEDS: SEVELAMER CARBONATE 0.8 GM PKT GTB ×3 (09:00→21:33)
[2017-09-04] MEDS: VITAMIN B COMPLEX/VIT C CAP PO (12:00)
[2017-09-04] MEDS: BALSAM PERU/CASTOR OIL 60 GM TUBE TOP ×2 (12:00→21:42)
[2017-09-04] MEDS: DOCUSATE SODIUM 10 MG/ML (10ML CUP) GTB ×2 (12:00→21:33)
[2017-09-04] MEDS: PSYLLIUM 28% PACKET PO ×2 (12:00→21:33)
[2017-09-04] MEDS: COLLAGENASE 5 GM (UD JAR) TOP (12:00)
[2017-09-04] MEDS: CYANOCOBALAMIN 500 MCG TAB GTB (12:01)
[2017-09-04] MEDS: CHOLECALCIFEROL 1,000 UNIT TAB GTB (12:01)
[2017-09-04] MEDS: ASCORBIC ACID 500 MG TAB GTB (12:01)
[2017-09-04] MEDS: OLANZAPINE 5 MG TAB PO ×2 (12:01→21:32)
[2017-09-04] MEDS: MULTIVIT/CA CARB/B CMPLX/FA TAB GTB (12:01)
[2017-09-04] MEDS: FOLIC ACID 1 MG TAB GTB (12:01)
[2017-09-04] MEDS: APIXABAN 5 MG TABLET PO ×2 (12:02→21:32)
[2017-09-04] MEDS: HEPARIN 1000 UNITS/ML 10 ML INJ CATHETER (12:34)
[2017-09-04] MEDS: morphine 2 MG INJ IV (14:57)
[2017-09-04] MEDS: FENTAnyl 50 MCG/ML VIAL IV ×2 (16:00→20:34)
[2017-09-04] MEDS: EPOETIN 10000 UNITS/1 ML INJ (ESRD) SC (16:06)
[2017-09-04] MEDS: ATORVASTATIN 10 MG TAB PO (21:32)
[2017-09-04] MEDS: FAMOTIDINE 20 MG TAB PO (21:33)
[2017-09-04] MEDS: INSULIN GLARGINE [LANtus] 3 ML PEN SC (21:47)
[2017-09-05] MEDS: FENTAnyl 50 MCG/ML VIAL IV ×5 (00:16→18:41)
[2017-09-05] MEDS: LORAZEPAM 2 MG INJ IV ×4 (00:16→18:41)
[2017-09-05] MEDS: METOCLOPRAMIDE 10 MG INJ IV ×4 (00:17→17:07)
[2017-09-05] MEDS: INSULIN ASPART [NOVOLOG] 3 ML PEN SC ×6 (02:05→21:07)
[2017-09-05] MEDS: oxyCODONE 5 MG TAB PO ×2 (04:39→19:57)
[2017-09-05 05:32] LABS: ADD MAN DIFF? NO
[2017-09-05 05:42] LABS: ABNORMAL IP MESSAGE 1; BASOPHIL # 0.1 10^3/ul (0.0-0.1); BASOPHILS % 0.6 % (0.0-2.0); EOSINOPHILS # 0.2 10^3/ul (0.0-0.5); HEMATOCRIT 25.8 % (42.0-52.0); HEMOGLOBIN 7.9 g/dl (14.0-18.0); LYMPHOCYTES # 0.4 10^3/ul (0.8-2.9); LYMPHOCYTES % 3.5 % (15.0-51.0); MEAN CORPUSCULAR HEMOGLOBIN 28.7 pg (29.0-33.0); MEAN CORPUSCULAR HGB CONC 30.6 g/dl (32.0-37.0); MEAN CORPUSCULAR VOLUME 93.8 fl (82.0-101.0); MEAN PLATELET VOLUME 8.8 fl (7.4-10.4); MONOCYTE # 0.6 10^3/ul (0.3-0.9); MONOCYTES % 6.2 % (0.0-11.0); NEUTROPHIL # 8.4 10^3/ul (1.6-7.5); NEUTROPHILS % 85.5 % (39.0-77.0); PLATELET COUNT 258 10^3/UL (140-415); POSITIVE DIFF @See below; RED BLOOD COUNT 2.75 10^6/ul (4.70-6.10); RED CELL DISTRIBUTION WIDTH 16.1 % (11.5-14.5)
[2017-09-05 05:42] LABS: WHITE BLOOD COUNT 9.9 10^3/ul (4.8-10.8)
[2017-09-05 06:55] LABS: ANION GAP 13 (8-16); BLOOD UREA NITROGEN 29 mg/dl (7-20); CALCIUM 7.9 mg/dl (8.4-10.2); CARBON DIOXIDE 27 mmol/L (21-31); CHLORIDE 101 mmol/L (97-110); CREATININE 2.81 mg/dl (0.61-1.24); GLUCOSE 126 mg/dl (70-220); POTASSIUM 4.1 mmol/L (3.5-5.1); SODIUM 137 mmol/L (135-144)
[2017-09-05] MEDS: ASCORBIC ACID 500 MG TAB GTB (08:22)
[2017-09-05] MEDS: APIXABAN 5 MG TABLET PO ×2 (08:22→21:04)
[2017-09-05] MEDS: PSYLLIUM 28% PACKET PO ×2 (08:22→21:03)
[2017-09-05] MEDS: SEVELAMER CARBONATE 0.8 GM PKT GTB ×3 (08:22→21:03)
[2017-09-05] MEDS: DOCUSATE SODIUM 10 MG/ML (10ML CUP) GTB ×2 (08:22→21:03)
[2017-09-05] MEDS: VITAMIN B COMPLEX/VIT C CAP PO (08:22)
[2017-09-05] MEDS: CYANOCOBALAMIN 500 MCG TAB GTB (08:23)
[2017-09-05] MEDS: CHOLECALCIFEROL 1,000 UNIT TAB GTB (08:23)
[2017-09-05] MEDS: BALSAM PERU/CASTOR OIL 60 GM TUBE TOP ×2 (08:23→21:04)
[2017-09-05] MEDS: FOLIC ACID 1 MG TAB GTB (08:23)
[2017-09-05] MEDS: OLANZAPINE 5 MG TAB PO ×2 (08:23→21:03)
[2017-09-05] MEDS: MULTIVIT/CA CARB/B CMPLX/FA TAB GTB (08:23)
[2017-09-05] MEDS: COLLAGENASE 5 GM (UD JAR) TOP (08:25)
[2017-09-05] MEDS: FAMOTIDINE 20 MG TAB PO (21:03)
[2017-09-05] MEDS: ATORVASTATIN 10 MG TAB PO (21:03)
[2017-09-05] MEDS: INSULIN GLARGINE [LANtus] 3 ML PEN SC (21:06)
[2017-09-06] MEDS: METOCLOPRAMIDE 10 MG INJ IV ×5 (00:58→22:25)
[2017-09-06] MEDS: INSULIN ASPART [NOVOLOG] 3 ML PEN SC ×6 (01:00→21:00)
[2017-09-06] MEDS: FENTAnyl 50 MCG/ML VIAL IV (01:02)
[2017-09-06] MEDS: LORAZEPAM 2 MG INJ IV ×2 (02:12→15:09)
[2017-09-06] MEDS: oxyCODONE 5 MG TAB PO ×2 (03:48→13:29)
[2017-09-06] MEDS: COLLAGENASE 5 GM (UD JAR) TOP ×2 (03:54→09:35)
[2017-09-06 05:07] LABS: ADD MAN DIFF? NO
[2017-09-06 05:09] LABS: WHITE BLOOD COUNT 9.1 10^3/ul (4.8-10.8)
[2017-09-06 05:09] LABS: ABNORMAL IP MESSAGE 1; BASOPHIL # 0.1 10^3/ul (0.0-0.1); BASOPHILS % 0.7 % (0.0-2.0); EOSINOPHILS # 0.4 10^3/ul (0.0-0.5); EOSINOPHILS % 4.2 % (0.0-7.0); HEMATOCRIT 23.6 % (42.0-52.0); HEMOGLOBIN 7.3 g/dl (14.0-18.0); LYMPHOCYTES # 0.3 10^3/ul (0.8-2.9); LYMPHOCYTES % 3.1 % (15.0-51.0); MEAN CORPUSCULAR HGB CONC 30.9 g/dl (32.0-37.0); MEAN CORPUSCULAR VOLUME 93.7 fl (82.0-101.0); MEAN PLATELET VOLUME 8.9 fl (7.4-10.4); MONOCYTE # 0.6 10^3/ul (0.3-0.9); MONOCYTES % 6.3 % (0.0-11.0); NEUTROPHIL # 7.6 10^3/ul (1.6-7.5); NEUTROPHILS % 83.2 % (39.0-77.0); PLATELET COUNT 245 10^3/UL (140-415); POSITIVE DIFF @See below; RED BLOOD COUNT 2.52 10^6/ul (4.70-6.10); RED CELL DISTRIBUTION WIDTH 16.1 % (11.5-14.5)
[2017-09-06 05:40] LABS: ANION GAP 14 (8-16); BLOOD UREA NITROGEN 36 mg/dl (7-20); CALCIUM 7.6 mg/dl (8.4-10.2); CARBON DIOXIDE 29 mmol/L (21-31); CHLORIDE 96 mmol/L (97-110); CREATININE 3.08 mg/dl (0.61-1.24); GLUCOSE 90 mg/dl (70-220); POTASSIUM 4.2 mmol/L (3.5-5.1); SODIUM 135 mmol/L (135-144)
[2017-09-06] MEDS: SEVELAMER CARBONATE 0.8 GM PKT GTB ×3 (09:35→21:00)
[2017-09-06] MEDS: DOCUSATE SODIUM 10 MG/ML (10ML CUP) GTB ×2 (09:35→21:00)
[2017-09-06] MEDS: CHOLECALCIFEROL 1,000 UNIT TAB GTB (09:35)
[2017-09-06] MEDS: ASCORBIC ACID 500 MG TAB GTB (09:36)
[2017-09-06] MEDS: MULTIVIT/CA CARB/B CMPLX/FA TAB GTB (09:36)
[2017-09-06] MEDS: APIXABAN 5 MG TABLET PO ×2 (09:36→21:00)
[2017-09-06] MEDS: FOLIC ACID 1 MG TAB GTB (09:36)
[2017-09-06] MEDS: CYANOCOBALAMIN 500 MCG TAB GTB (09:37)
[2017-09-06] MEDS: OLANZAPINE 5 MG TAB PO ×2 (09:37→21:00)
[2017-09-06] MEDS: PSYLLIUM 28% PACKET PO ×2 (11:07→21:00)
[2017-09-06] MEDS: VITAMIN B COMPLEX/VIT C CAP PO (11:07)
[2017-09-06] MEDS: BALSAM PERU/CASTOR OIL 60 GM TUBE TOP ×2 (11:07→21:00)
[2017-09-06] MEDS: HYDROmorphONE 1 MG/ML SYG IV ×2 (15:09→20:48)
[2017-09-06] MEDS: EPOETIN 10000 UNITS/1 ML INJ (ESRD) SC (18:39)
[2017-09-06] MEDS: ATORVASTATIN 10 MG TAB PO (21:00)
[2017-09-06] MEDS: FAMOTIDINE 20 MG TAB PO (21:00)
[2017-09-06] MEDS: INSULIN GLARGINE [LANtus] 3 ML PEN SC (21:04)
[2017-09-07] MEDS: INSULIN ASPART [NOVOLOG] 3 ML PEN SC ×4 (01:37→12:28)
[2017-09-07] MEDS: METOCLOPRAMIDE 10 MG INJ IV ×2 (05:08→12:26)
[2017-09-07] MEDS: LORAZEPAM 2 MG INJ IV ×8 (06:45→23:14)
[2017-09-07] MEDS: HYDROmorphONE 1 MG/ML SYG IV ×2 (06:46→10:07)
[2017-09-07 07:56] LABS: ADD MAN DIFF? NO
[2017-09-07 08:02] LABS: ABNORMAL IP MESSAGE 1; BASOPHIL # 0.1 10^3/ul (0.0-0.1); BASOPHILS % 0.6 % (0.0-2.0); EOSINOPHILS # 0.2 10^3/ul (0.0-0.5); EOSINOPHILS % 2.6 % (0.0-7.0); HEMATOCRIT 23.9 % (42.0-52.0); HEMOGLOBIN 7.2 g/dl (14.0-18.0); LYMPHOCYTES # 0.3 10^3/ul (0.8-2.9); LYMPHOCYTES % 2.8 % (15.0-51.0); MEAN CORPUSCULAR HEMOGLOBIN 28.3 pg (29.0-33.0); MEAN CORPUSCULAR HGB CONC 30.1 g/dl (32.0-37.0); MEAN CORPUSCULAR VOLUME 94.1 fl (82.0-101.0); MEAN PLATELET VOLUME 8.8 fl (7.4-10.4); MONOCYTE # 0.6 10^3/ul (0.3-0.9); MONOCYTES % 6.6 % (0.0-11.0); NEUTROPHIL # 7.9 10^3/ul (1.6-7.5); NEUTROPHILS % 84.7 % (39.0-77.0); PLATELET COUNT 233 10^3/UL (140-415); POSITIVE DIFF @See below; RED BLOOD COUNT 2.54 10^6/ul (4.70-6.10); RED CELL DISTRIBUTION WIDTH 16.3 % (11.5-14.5)
[2017-09-07 08:02] LABS: WHITE BLOOD COUNT 9.3 10^3/ul (4.8-10.8)
[2017-09-07 08:19] LABS: ANION GAP 16 (8-16); BLOOD UREA NITROGEN 41 mg/dl (7-20); CALCIUM 7.8 mg/dl (8.4-10.2); CARBON DIOXIDE 27 mmol/L (21-31); CHLORIDE 97 mmol/L (97-110); CREATININE 3.44 mg/dl (0.61-1.24); GLUCOSE 84 mg/dl (70-220); POTASSIUM 4.5 mmol/L (3.5-5.1); SODIUM 135 mmol/L (135-144)
[2017-09-07] MEDS: FOLIC ACID 1 MG TAB GTB (10:11)
[2017-09-07] MEDS: ASCORBIC ACID 500 MG TAB GTB (10:11)
[2017-09-07] MEDS: DOCUSATE SODIUM 10 MG/ML (10ML CUP) GTB (10:12)
[2017-09-07] MEDS: PSYLLIUM 28% PACKET PO (10:12)
[2017-09-07] MEDS: MULTIVIT/CA CARB/B CMPLX/FA TAB GTB (10:12)
[2017-09-07] MEDS: COLLAGENASE 5 GM (UD JAR) TOP (10:12)
[2017-09-07] MEDS: OLANZAPINE 5 MG TAB PO (10:12)
[2017-09-07] MEDS: CHOLECALCIFEROL 1,000 UNIT TAB GTB (10:12)
[2017-09-07] MEDS: CYANOCOBALAMIN 500 MCG TAB GTB (10:12)
[2017-09-07] MEDS: VITAMIN B COMPLEX/VIT C CAP PO (10:12)
[2017-09-07] MEDS: SEVELAMER CARBONATE 0.8 GM PKT GTB ×2 (10:13→12:26)
[2017-09-07] MEDS: APIXABAN 5 MG TABLET PO (10:13)
[2017-09-07] MEDS: BALSAM PERU/CASTOR OIL 60 GM TUBE TOP ×2 (10:14→20:53)
[2017-09-07] MEDS ORDERED: VANCOMYCIN 1 GM (PMX) 250 ML IVPB (10:30)
[2017-09-07] MEDS ORDERED: ACETAMINOPHEN 650 MG SUPP PR (13:00)
[2017-09-07] MEDS ORDERED: BISACODYL 10 MG SUPP PR (13:00)
[2017-09-07] MEDS: morphine (DRIP) 100 MG/100 ML 100 ML IV (14:25)
[2017-09-07] MEDS: SCOPOLAMINE 1.5 MG PATCH TRANSDERM (14:29)
[2017-09-07] MEDS: morphine 10 MG INJ IV ×2 (14:30→15:38)
[2017-09-07] MEDS ORDERED: LORAZEPAM (MDV) 60 MG in DEXTROSE 5% 30 ML IV (15:30)
[2017-09-07] MEDS ORDERED: LORAZEPAM 2 MG INJ IV ×2 (16:00→17:00)
[2017-09-07] MEDS ORDERED: ATROPINE SULFATE 1% 5ML SL (17:00)
[2017-09-07] MEDS: ATROPINE SULFATE 1% 5ML SL ×2 (18:16→20:53)
[2017-09-08] MEDS: ATROPINE SULFATE 1% 5ML SL ×5 (01:15→17:00)
[2017-09-08] MEDS: LORAZEPAM 2 MG INJ IV ×10 (01:16→18:01)
[2017-09-08] MEDS: BALSAM PERU/CASTOR OIL 60 GM TUBE TOP (09:04)
[2017-09-08] MEDS: morphine (DRIP) 100 MG/100 ML 100 ML IV (11:06)
== END 2017-09-08 17:22 | disposition expired | DRG 870 ==
LOC: TEL 09-06 07:35 → ICU 13:35
PROC: 5A1955Z Respiratory Ventilation, Greater than 96 Consecutive Hours (ICD-10-PCS; principal; 2017-08-18)
PROC: 30233N1 Transfusion of Nonautologous Red Blood Cells into Peripheral Vein, Percutaneous Approach (ICD-10-PCS; 2017-08-19)
PROC: 5A1D70Z Performance of Urinary Filtration, Intermittent, Less than 6 Hours Per Day (ICD-10-PCS; 2017-08-19)
PROC: 05HM33Z Insertion of Infusion Device into Right Internal Jugular Vein, Percutaneous Approach (ICD-10-PCS; 2017-08-20)
DX: A41.89 Other specified sepsis (principal); R65.21 Severe sepsis with septic shock; G93.49 Other encephalopathy; J96.91 Respiratory failure, unspecified with hypoxia; N18.6 End stage renal disease; J18.9 Pneumonia, unspecified organism; I63.9 Cerebral infarction, unspecified; I12.0 Hypertensive chronic kidney disease with stage 5 chronic kidney disease or end stage renal disease; E46 Unspecified protein-calorie malnutrition; I25.810 Atherosclerosis of coronary artery bypass graft(s) without angina pectoris; A85.8 Other specified viral encephalitis; Z99.11 Dependence on respirator [ventilator] status; I44.2 Atrioventricular block, complete; K56.7 Ileus, unspecified; J98.11 Atelectasis; B49 Unspecified mycosis; A41.9 Sepsis, unspecified organism; E11.22 Type 2 diabetes mellitus with diabetic chronic kidney disease; Z99.2 Dependence on renal dialysis; Z51.5 Encounter for palliative care; I46.9 Cardiac arrest, cause unspecified; R13.10 Dysphagia, unspecified; I48.0 Paroxysmal atrial fibrillation; D64.9 Anemia, unspecified; Z87.891 Personal history of nicotine dependence; Z95.1 Presence of aortocoronary bypass graft; Z86.718 Personal history of other venous thrombosis and embolism; Z85.72 Personal history of non-Hodgkin lymphomas; Z68.31 Body mass index [BMI] 31.0-31.9, adult; R45.1 Restlessness and agitation; J40 Bronchitis, not specified as acute or chronic
CPT/HCPCS: 36430; 36600; 70450; 71045; 71275; 74018; 74176; 76700; 78226; 78806; 80048; 80053; 80061; 80202; 81001; 82150; 82270; 82550; 82553; 82607; 82728; 82803; 82962; 83540; 83605; 83690; 83735; 83880; 84100; 84145; 84439; 84484; 85018; 85025; 86850; 86900; 86901; 86920; 87040; 87070; 87081; 87086; 89220; 90935; 93005; 93306; 93922; 93970; 93971; 94002; 94003; 94770